=== PATIENT | male | born 1960 | race African-American/Black ===

== ENCOUNTER 2016-09-08 04:42 | Emergency (ER) | payer MEDICAID, OTHER ==
[2016-09-08] MEDS ORDERED: Ketorolac INJ* 60 MG/2 ML VIAL IM ONE (04:45)
--- NOTE | 2016-09-08 06:07 | ED ---
Vinicius Chairez Adam, scribed for Shawn Hickey MD on 09/08/16 at 0503 . Complex/Multi-Sys Presentation - HPI Summary HPI Summary: Pt is a 55 year old male presenting with palpitations and pain. He states that he fell in the bathroom 5 days ago and is currently in pain all over his body. He stated repeatedly that he feels like he is "burning up." Approximately 25 minutes ago he began to have palpitations as well, feeling like his heart was racing. PMHx includes CAD, HTN, HLD, gout, and sickle cell trait. - History Of Current Complaint Chief Complaint: EDGeneral Time Seen by Provider: 09/08/16 04:45 Hx Obtained From: Patient Onset/Duration: Gradual Onset, Lasting Days, Still Present Timing: Constant Severity Currently: Moderate Severity Initially: Moderate Location: Pain At: - Generalized Character: Unable To Describe - Feels like he is "burning up" Aggravating Factor(s): Nothing Alleviating Factor(s): Nothing Associated Signs And Symptoms: Positive: Other - Palpitations - Allergies/Home Medications Allergies/Adverse Reactions: Allergies Allergy/AdvReac Type Severity Reaction Status Date / Time Diltiazem Allergy INFECTION Verified 05/20/16 12:56 -ARMS AND LEGS PMH/Surg Hx/FS Hx/Imm Hx Endocrine/Hematology History: Reports: Hx Sickle Cell Disease - SICKLE CELL TRAIT Denies: Hx Anticoagulant Therapy, Hx Diabetes, Hx Thyroid Disease, Other Endocrine/Hematological Disorders Cardiovascular History: Reports: Hx Coronary Artery Disease - CHOLESTEROL HAS BEEN UP & DOWN, Hx Hypercholesterolemia, Hx Hypertension - ON MEDICATION FOR Denies: Hx Pacemaker/ICD, Other Cardiovascular Problems/Disorders Respiratory History: Denies: Hx Asthma, Hx Chronic Obstructive Pulmonary Disease (COPD), Other Respiratory Problems/Disorders GI History: Denies: Hx Ulcer, Other GI Disorders History: Reports: Other Problems/Disorders - KIDNEY FUNCTION LEVELS ARE HIGH PER PATIENT Denies: Hx Dialysis, Hx Renal Disease - BEING TESTED Musculoskeletal History: Reports: Hx Arthritis - LEFT KNEE, Other Musculoskeletal History - Gout Sensory History: Reports: Hx Contacts or Glasses - READING GLASSES Denies: Hx Hearing Aid, Other Sensory Impairments Opthamlomology History: Reports: Hx Contacts or Glasses - READING GLASSES Denies: Other Sensory Impairments Neurological History: Denies: Other Neuro Impairments/Disorders Psychiatric History: Reports: Hx Anxiety - HISTORY OF - ON MEDICATION FOR Denies: Hx Panic Disorder, Other Psychiatric Issues/Disorders - Surgical History Surgery Procedure, Year, and Place: RIGHT ARM STITCHING-38+STITCHES(1984)- [facility]. 2013-LEFT INGUINAL HERNIA REPAIR. RT KNEE AND LEFT KNEE SURGERY 12/03/13 AT [facility] [place] Hx Anesthesia Reactions: No - Immunization History Date of Tetanus Vaccine: UTD Date of Influenza Vaccine: NONE Infectious Disease History: No Infectious Disease History: Denies: Hx Hepatitis, Hx Human Immunodeficiency Virus (HIV), Traveled Outside the [place] in Last 30 Days - Family History Known Family History: Positive: Other - Negative malignant hyperthermia Negative: Blood Disorder - Social History Occupation: Employed Full-time Lives: Alone Alcohol Use: Occasionally Alcohol Amount: 1 DRINK EVERY FEW MONTHS Hx Substance Use: No Substance Use Type: Reports: None Hx Tobacco Use: No Smoking Status (MU): Never Smoked Tobacco Review of Systems Positive: Palpitations Positive: Myalgia - Feels like he is "burning up" All Other Systems Reviewed And Are Negative: Yes Physical Exam Triage Information Reviewed: Yes Vital Signs On Initial Exam: Initial Vitals Temp Pulse Resp BP Pulse Ox 100.4 F 84 18 128/66 93 09/08/16 04:45 09/08/16 04:45 09/08/16 04:45 09/08/16 04:45 09/08/16 04:45 Vital Signs Reviewed: Yes Appearance: Positive: Well-Appearing, No Pain Distress Skin: Positive: Warm Head/Face: Positive: Normal Head/Face Inspection Eyes: Positive: MARY ENT: Positive: Hearing grossly normal Neck: Positive: Supple Respiratory/Lung Sounds: Positive: Clear to Auscultation, Breath Sounds Present Cardiovascular: Positive: RRR. Negative: Murmur Abdomen Description: Positive: Nontender, No Organomegaly, Soft Bowel Sounds: Positive: Present Musculoskeletal: Positive: Other - no deformity to ankle/knee, from Neurological: Positive: Sensory/Motor Intact Diagnostics - Vital Signs Vital Signs Temp Pulse Resp BP Pulse Ox 09/08/16 04:45 100.4 F 84 18 128/66 93 - Laboratory Lab Statement: Any lab studies that have been ordered have been reviewed, and results considered in the medical decision making process. - Radiology Ankle XR Xray Interpretation: No Acute Changes Radiology Interpretation Completed By: ED Physician Knee KR Xray Interpretation: No Acute Changes Radiology Interpretation Completed By: ED Physician - EKG 04:47 Cardiac Rate: NL - 82 BPM EKG Rhythm: Sinus Rhythm - Normal EKG Interpretation: Within normal limits Re-Evaluation - Re-Evaluation First Eval Change: Improved - results d/w pt Complex Multi-Symp Course/Dx - Diagnoses Provider Diagnoses: Palpitations, Extremity pain Discharge - Discharge Plan Condition: Stable Disposition: HOME Patient Education Materials: Palpitations (ED), Leg Pain (ED) Referrals: Jf Christianson MD [Primary Care Provider] - Additional Instructions: Follow up with Dr. Christianson tomorrow (09/09/16). The documentation as recorded by the Vinicius issa Adam accurately reflects the service I personally performed and the decisions made by me, Shawn Hickey MD.
[2016-09-08 07:12] VITALS: BP 126/78
--- NOTE | 2016-09-09 11:03 | RAD ---
INDICATION: Right ankle injury. TECHNIQUE: 2 views of the right ankle were obtained. FINDINGS: There is diffuse soft tissue swelling. No fracture is seen. There is a large calcification adjacent to the medial aspect of the medial malleolus. There is moderate osteoarthritic change in the tibiotalar joint. Note is made of vascular calcifications. IMPRESSION: SOFT TISSUE SWELLING, NO FRACTURE IS SEEN.
--- NOTE | 2016-09-09 11:04 | RAD ---
HISTORY: Subacute trauma, generalized pain, sickle cell trait COMPARISONS: October 01, 2013 VIEWS: 2, Frontal and lateral views of the right knee FINDINGS: BONE DENSITY: Normal. BONES: There is no displaced fracture. JOINTS: There is mild tricompartmental osteoarthritis. There is a moderate suprapatellar joint effusion ALIGNMENT: There is no dislocation. SOFT TISSUES: Unremarkable. OTHER FINDINGS: None. IMPRESSION: JOINT EFFUSION. NO ACUTE OSSEOUS INJURY. IF SYMPTOMS PERSIST, RECOMMEND REPEAT IMAGING.
== END 2016-09-08 07:09 | disposition home or self-care (01) ==
LOC: ED 04:42
DX: R00.2 Palpitations (principal); M79.609 Pain in unspecified limb
CPT/HCPCS: 93005; 96372; 99282; J1885

== ENCOUNTER 2016-09-09 19:12 | Inpatient (IN) | payer OTHER ==
[2016-09-09] MEDS ORDERED: Acetaminophen TAB* 325 MG PO ONE (19:32)
[2016-09-09] MEDS ORDERED: Clindamycin 600 MG IVPREMIX(* 600 MG/50 ML SDV IV ONE (19:35)
[2016-09-09 19:58] LABS: Hematocrit 35 % (42-52); Hemoglobin 11.6 g/dl (14.0-18.0); Mean Corpuscular HGB Conc 33 g/dl (31-36); Mean Corpuscular Hemoglobin 28 pg (27-31); Mean Corpuscular Volume 85 fL (80-94); Mean Platelet Volume 8 um3 (7.4-10.4); Red Blood Count 4.15 10^6/ul (4.0-5.4); Red Cell Distribution Width 15 % (10.5-15); White Blood Count 10.9 10^3/ul (3.5-10.8)
[2016-09-09 20:12] LABS: Albumin 3.9 g/dL (3.2-5.2); BUN/Creatinine Ratio 19.9 (8-20); C Reactive Protein 318.06 mg/L (< 5.00); Calcium 9.5 mg/dL (8.6-10.3); EGFR African American 54.1 (>60); EGFR Non-African American 42.1 (>60); Globulin 4.4 g/dL (2-4); Potassium 3.3 mmol/L (3.5-5.0); Total Bilirubin 0.3 mg/dL (0.2-1.0); Total Protein 8.3 g/dL (6.4-8.9)
--- NOTE | 2016-09-09 20:24 | RAD ---
INDICATION: Fever COMPARISON: April 21, 2016 TECHNIQUE: PA and lateral dual-energy views were obtained. FINDINGS: Bones/Soft Tissues: There are no acute bony findings. Cardiomediastinal: The cardiomediastinal silhouette is normal. Lungs: There are no infiltrates. Pleura: There are no pleural effusions. Other: None IMPRESSION: NO ACTIVE DISEASE.
--- NOTE | 2016-09-09 20:25 | RAD ---
INDICATION: Left elbow injury one week ago COMPARISON: None TECHNIQUE: AP, lateral, and oblique views were obtained. FINDINGS: There is no acute fracture. Elbow articulates normally. There is soft tissue swelling about the dorsal aspect of the proximal forearm. IMPRESSION: SOFT TISSUE SWELLING. NO ACUTE FRACTURE
[2016-09-09 20:41] LABS: Urine Bilirubin Negative (Negative); Urine Glucose Negative (Negative); Urine Nitrite Negative (Negative)
[2016-09-09] MEDS ORDERED: Vancomycin per Pharmacy* NOTE FOLLOW UP PRN (20:59)
--- NOTE | 2016-09-09 21:04 | ED ---
Alpa Chairez Matthew, scribed for Mina Denis on 09/09/16 at 1938 . Skin Complaint - HPI Summary HPI Summary: A 55 y/o male presents to the ED by request from his PCP for a constant infection on his left elbow for the past 2-3 days. The pain is rated 8/10 in severity. Associated symptoms include swelling. Hes also states that he's had diaphoresis and palpitation intermittently for the past couple of days; however , he does not have these symptoms currently. He denies chest pain, SOB, and abdominal pain. Hx of gout. No Hx of diabetes, HTN, or CAD. FHx of diabetes. - History of Current Complaint Chief Complaint: EDGeneral Time Seen by Provider: 09/09/16 19:25 Stated Complaint: SENT BY DR CHRISTIANSON Hx Obtained From: Patient Onset/Duration: Started Days Ago, Atraumatic, Still Present Skin Exposure Onset/Duration: Days Ago Timing: Constant Onset Severity: Moderate Current Severity: Moderate Pain Intensity: 8 Pain Scale Used: 0-10 Numeric Skin Location: Other: - left elbow Character: Swelling, Pain Associated Signs & Symptoms: Fever - Allergy/Home Medications Allergies/Adverse Reactions: Allergies Allergy/AdvReac Type Severity Reaction Status Date / Time Diltiazem Allergy INFECTION Verified 05/20/16 12:56 -ARMS AND LEGS PMH/Surg Hx/FS Hx/Imm Hx Endocrine/Hematology History: Reports: Hx Sickle Cell Disease - SICKLE CELL TRAIT Denies: Hx Anticoagulant Therapy, Hx Diabetes, Hx Thyroid Disease, Other Endocrine/Hematological Disorders Cardiovascular History: Reports: Hx Coronary Artery Disease - CHOLESTEROL HAS BEEN UP & DOWN, Hx Hypercholesterolemia, Hx Hypertension - ON MEDICATION FOR Denies: Hx Pacemaker/ICD, Other Cardiovascular Problems/Disorders Respiratory History: Denies: Hx Asthma, Hx Chronic Obstructive Pulmonary Disease (COPD), Other Respiratory Problems/Disorders GI History: Denies: Hx Ulcer, Other GI Disorders History: Reports: Other Problems/Disorders - KIDNEY FUNCTION LEVELS ARE HIGH PER PATIENT Denies: Hx Dialysis, Hx Renal Disease - BEING TESTED Musculoskeletal History: Reports: Hx Arthritis - LEFT KNEE, Other Musculoskeletal History - Gout Sensory History: Reports: Hx Contacts or Glasses - READING GLASSES Denies: Hx Hearing Aid, Other Sensory Impairments Opthamlomology History: Reports: Hx Contacts or Glasses - READING GLASSES Denies: Other Sensory Impairments Neurological History: Denies: Other Neuro Impairments/Disorders Psychiatric History: Reports: Hx Anxiety - HISTORY OF - ON MEDICATION FOR Denies: Hx Panic Disorder, Other Psychiatric Issues/Disorders - Surgical History Surgery Procedure, Year, and Place: RIGHT ARM STITCHING-38+STITCHES(1984)- [facility]. 2013-LEFT INGUINAL HERNIA REPAIR. RT KNEE AND LEFT KNEE SURGERY 12/03/13 AT [facility] [place] Hx Anesthesia Reactions: No - Immunization History Date of Tetanus Vaccine: UTD Date of Influenza Vaccine: NONE Infectious Disease History: No Infectious Disease History: Denies: Hx Hepatitis, Hx Human Immunodeficiency Virus (HIV), Traveled Outside the [place] in Last 30 Days - Family History Known Family History: Positive: Diabetes, Other - Negative malignant hyperthermia Negative: Blood Disorder - Social History Alcohol Use: Occasionally Alcohol Amount: 1 DRINK EVERY FEW MONTHS Hx Substance Use: No Substance Use Type: Reports: None Hx Tobacco Use: No Smoking Status (MU): Never Smoked Tobacco Review of Systems Constitutional: Negative Eyes: Negative ENT: Negative Cardiovascular: Negative Negative: Palpitations, Chest Pain Respiratory: Negative Negative: Shortness Of Breath Gastrointestinal: Negative Negative: Abdominal Pain Genitourinary: Negative Positive: Myalgia - left elbow , Edema - left elbow Skin: Negative Neurological: Negative Psychological: Normal All Other Systems Reviewed And Are Negative: Yes Physical Exam Triage Information Reviewed: Yes Vital Signs On Initial Exam: Initial Vitals Temp Pulse Resp BP Pulse Ox 100.9 F 73 20 121/76 100 09/09/16 19:15 09/09/16 19:15 09/09/16 19:15 09/09/16 19:15 09/09/16 19:15 Vital Signs Reviewed: Yes Appearance: Positive: Well-Appearing, No Pain Distress Skin: Positive: Warm, Skin Color Reflects Adequate Perfusion, Dry Head/Face: Positive: Normal Head/Face Inspection Eyes: Positive: EOMI, MARY, Other: - mild pustule in the right eyelid ENT: Positive: Normal ENT inspection Neck: Positive: Supple, Nontender Respiratory/Lung Sounds: Positive: Clear to Auscultation, Breath Sounds Present Cardiovascular: Positive: RRR, Pulses are Symmetrical in both Upper and Lower Extremities Abdomen Description: Positive: Nontender, Soft Bowel Sounds: Positive: Present Musculoskeletal: Positive: Other - Swelling in the left forearm extending to the left arm; tenderness of the left elbow Neurological: Positive: Normal, Sensory/Motor Intact, Alert, Oriented to Person Place, Time Psychiatric: Positive: Normal Diagnostics - Vital Signs Vital Signs Temp Pulse Resp BP Pulse Ox 09/09/16 19:15 100.9 F 73 20 121/76 100 - Laboratory Result Diagrams: 09/09/16 19:45 09/09/16 19:45 Lab Statement: Any lab studies that have been ordered have been reviewed, and results considered in the medical decision making process. - Radiology LT elbow XR Xray Interpretation: No Acute Changes - IMPRESSION: SOFT TISSUE SWELLING. NO ACUTE FRACTURE Radiology Interpretation Completed By: Radiologist CXR Xray Interpretation: No Acute Changes - IMPRESSION: NO ACTIVE DISEASE. Radiology Interpretation Completed By: Radiologist Course/Dx - Course Assessment/Plan: A 55 y/o male presents to the ED by request from Dr. Christianson for an infection of the left elbow. Dr. Christianson sent the patient to the ED, so that he could be admitted. The left elbow and CXR returned negative. Discussed the case with Dr. Strickland who states Dr. Christianson will admit the patient into his care. - Diagnoses Provider Diagnoses: Cellulitis of left elbow - Physician Notifications Discussed Care Of Patient With: Dr. Strickland (Hospitalist) at 20:55 -- Notified of patient's history and states Dr. Christianson will admit the patient. Discharge - Discharge Plan Condition: Stable Disposition: ADMITTED TO [facility] Referrals: Jf Christianson MD [Primary Care Provider] - The documentation as recorded by the Alpa issa Matthew accurately reflects the service I personally performed and the decisions made by , iMna Denis.
[2016-09-09] MEDS ORDERED: Ibuprofen TAB* 800 MG PO PRN (21:05)
[2016-09-09] MEDS ORDERED: Diazepam TAB(*) 5 MG PO PRN (21:07)
[2016-09-09] MEDS ORDERED: oxyCODONE TAB* 5 MG TAB PO PRN (21:07)
[2016-09-09] MEDS ORDERED: Acetaminophen TAB* 325 MG PO PRN (21:08)
[2016-09-09] MEDS ORDERED: Vancomycin(*) 1,500 MG in NS 0.9% 250 ML* 250 ML IVPB ONE (21:30)
[2016-09-09 21:39] LABS: Troponin I 0.01 ng/mL (<0.04)
[2016-09-09 21:48] LABS: Erythrocyte Sed Rate 111 mm/Hr (0-20)
--- NOTE | 2016-09-09 22:45 | RAD ---
INDICATION: Pain and swelling. Left upper extremity pain and swelling. COMPARISON: None TECHNIQUE: Duplex interrogation of the upperextremity was performed. FINDINGS: Deep veins: The visualized jugular, visualized subclavian, axillary, brachial, basilic, cephalic, radial, and ulnar veins are patent . There is normal compressibility, augmentation, and phasic flow. Superficial veins: There are no findings of superficial thrombophlebitis. Soft tissues:There are no soft tissue abnormalities. IMPRESSION: NORMAL EXAMINATION. NO EVIDENCE OF UPPER EXTREMITY DEEP VENOUS THROMBOSIS
[2016-09-10] MEDS: Colchicine* 0.6 MG TAB PO SCH (00:31)
[2016-09-10] MEDS: Gentamicin 0.3% OPHTH.SOLN* 5 ML BTL RIGHT EYE SCH ×10 (00:31→23:38)
[2016-09-10] MEDS: sulfaSALAzine TAB* 500 MG PO SCH ×3 (00:33→18:02)
[2016-09-10] MEDS: cefTRIAXone VIAL(*) 1,000 MG in NS 0.9% 50 ML* 50 ML IVPB SCH ×2 (00:45→22:12)
[2016-09-10] MEDS: NS 0.9% w/ 20 Meq KCL 1000 ML* 1,000 ML IV SCH ×3 (00:45→19:32)
[2016-09-10 06:08] LABS: Hematocrit 33 % (42-52); Mean Corpuscular HGB Conc 33 g/dl (31-36); Mean Corpuscular Hemoglobin 28 pg (27-31); Mean Corpuscular Volume 85 fL (80-94); Mean Platelet Volume 8 um3 (7.4-10.4); Red Blood Count 3.92 10^6/ul (4.0-5.4); Red Cell Distribution Width 15 % (10.5-15); White Blood Count 7.3 10^3/ul (3.5-10.8)
[2016-09-10 06:25] LABS: Albumin 3.3 g/dL (3.2-5.2); BUN/Creatinine Ratio 20.8 (8-20); C Reactive Protein 253.33 mg/L (< 5.00); EGFR African American 63.4 (>60); EGFR Non-African American 49.3 (>60); Globulin 3.9 g/dL (2-4); Magnesium 2.2 mg/dL (1.9-2.7); Potassium 3.8 mmol/L (3.5-5.0); Total Bilirubin 0.4 mg/dL (0.2-1.0); Total Protein 7.2 g/dL (6.4-8.9)
[2016-09-10] MEDS: Allopurinol TAB* 100 MG PO SCH (08:41)
[2016-09-10] MEDS ORDERED: Lisinopril TAB* 10 MG PO SCH (09:00)
[2016-09-10] MEDS ORDERED: Hydrochlorothiazide TAB* 25 MG PO SCH (09:00)
[2016-09-10] MEDS ORDERED: Lisinopril/HCTZ 20/12.5(NF) TAB PO SCH (09:00)
[2016-09-10] MEDS ORDERED: NS 0.9% 250 ML* 250 ML ONE (10:46)
[2016-09-10] MEDS: Hydrochlorothiazide TAB* 25 MG PO SCH (10:50)
[2016-09-10] MEDS: Lisinopril TAB* 10 MG PO SCH (10:52)
[2016-09-10] MEDS: Vancomycin(*) 1,250 MG in NS 0.9% 250 ML* 250 ML IVPB SCH ×2 (10:52→23:38)
--- NOTE | 2016-09-10 11:12 | CONSULT ---
Consult Consult: See dictated summary. 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 He is admitted with a significant flare of pain and restriction in the knee and elbow region. Prior aspiration of the right knee on 09/05 revealed 4 plus nucleated cells and 4 plus neutrophils but no crystals and no organisms. His CRP has been markedly elevated. Would continue IV antibiotic coverage. Consider ID consultation to rule out any infectious etiology. I will re check autoimmune serologies. He has tried Doxycycline and Sulfasalazine in the past. 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
[2016-09-10 15:06] LABS: Ferritin 370.4 ng/mL (24-336)
--- NOTE | 2016-09-10 16:54 | HP ---
CC: Dr. Longoria; Dr. De Leon ADMISSION HISTORY AND PHYSICAL: DATE OF ADMISSION: 09/09/16 CHIEF COMPLAINT: Palpitations, fever. HISTORY OF PRESENT ILLNESS: Mr. Guardado is a 55-year-old man with possible reactive arthritis who presented to the office on the day of admission, reporting pain and rash on the left elbow for 2 to 3 days. The patient states that the skin around the left elbow is red and burning and swollen. He had no trauma to the area. The patient reports fevers at home. This phase of his illness began approximately 6 days prior to admission. The patient reports that he, at that time, had swelling of the right knee and right ankle. The patient got up to go to the bathroom 6 days ago at home and had sudden syncope without warning. He woke up on the floor after, what he thinks is, a few hours. He was able to get to bed and he stayed home from work and spent almost all the time in bed for the last 4 days. He had worsening pain in his right knee and right ankle, and did call the ambulance on the night of 09/07/16. He was brought to the emergency department at that point, via the ambulance, he reports on advice of Dr. De Leon. He was seen and had x-rays of his right knee and right ankle, which showed effusions. No further blood tests were taken and he was discharged to home. The patient did also see Dr. De Leon on 09/05/16 in the office. At that time, his right knee was aspirated and blood tinged fatty fluid was removed and sent to the lab. This did not show any crystal, but did show 94% neutrophils. Culture in this fluid showed no growth to-date. The patient had same joint aspirated on 05/31 in the office, which showed a white cell count of 22,000, with similar results of no crystals, no bacteria. The patient also had a synovial biopsy on 05/20, Dr. De Leon, with dactylitis and inflamed MCP joint on the left hand, by Dr. De Leon. The pathology showed chronic synovitis and reactive changes without any clear signs of gout. During this illness this week, the patient has been on the phone with our office several times. He was ordered to start prednisone taper, but he has not picked up his medication. He was ordered yesterday to start doxycycline for possible cellulitis in his left elbow and this was also not started by the patient, he did not go to the pharmacy. It should be noted that the patient is a moderately poor historian and he also is unable to name his medications. He generally refers to his medications as the red pill, the green pill, etc. The patient, this week, believed that his left elbow swelling was due to medications he was on, so he stopped all his medications, except for lisinopril. PAST MEDICAL HISTORY: Includes reactive arthritis as above. He had suspected gout due to hyperuricemia and joint inflammation, but never had any crystals demonstrated. 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 PAST SURGICAL HISTORY: Hernia repair, right inguinal; left knee arthroscopy, right biceps tendon repair after laceration, synovial biopsy of left third finger as described above. MEDICATIONS: On admission: 1. Allopurinol 100 mg p.o. daily. 2. Multivitamin 1 tab p.o. daily. 3. Colchicine 0.6 mg every other day. 4. Diazepam 5 mg p.o. t.i.d. p.r.n. muscle spasm. 5. Ibuprofen 800 mg p.o. t.i.d. p.r.n. 6. Lisinopril/hydrochlorothiazide 25/12.5 one tab p.o. q.a.m. 7. Doxycycline 100 mg p.o. b.i.d. (never started). 8. Prednisone 60 mg p.o. daily for 4 days and then taper (never started). 9. Sulfasalazine 500 mg 2 tabs in the morning, 1 tab in the evening. ALLERGIES: DILTIAZEM. FAMILY HISTORY: Notable for father with diabetes and hypertension. Mother with hypertension and of heart disease at age 72. He has a son with asthma. A brother who has a history of hypertension. SOCIAL HISTORY: He lives alone. 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 He never smoked. He drinks alcohol 0 to 1 per day, no recreational drugs. REVIEW OF SYSTEMS: The patient reports night sweats soaking the sheets this week. He denies any weight loss. The patient reports palpitations. He also reports a history of NV in 2007 which led to initiation of blood pressure medication, details of this unavailable. He denies any recent cardiac workup. He also reports history of benign bladder neoplasm, seen by Dr. Sloan in the past. The patient denies any shortness of breath or cough. The patient denies any abdominal pain, nausea, vomiting, diarrhea or constipation. Remainder of a 14-point review of systems is negative other than mentioned in the HPI. PHYSICAL EXAMINATION GENERAL: The patient is fatigued appearing, in no acute distress. VITAL SIGNS: Temperature is 38.3, pulse 73, respirations 20, blood pressure is 121/76, oxygen saturation is 100%. HEENT: Head is normocephalic, atraumatic. Sclerae are anicteric. Conjunctiva are injected and erythematous on the right eyelid. Oropharynx is moist. No lesions. NECK: No adenopathy, no JVD or carotid bruits. Thyroid is not enlarged. No nodules. LUNGS: Clear to auscultation and percussion bilaterally. HEART: Regular rate and rhythm, without murmurs or gallops. ABDOMEN: Soft, nontender. Positive bowel sounds. No hepatosplenomegaly. No masses. EXTREMITIES: No peripheral edema. Dorsalis pedis pulses are 1+ bilaterally. NEUROLOGIC: Cranial nerves II through XII are intact. Motor strength is 5/5 throughout. MUSCULOSKELETAL: He has full range of motion of the right arm. On the left elbow, there is diffuse erythematous, indurated, tender area, about 10-15 cm. On the left elbow there is no skin breakdown. Range of motion of the right elbow is limited, and there is an effusion in the left olecranon bursa. The right knee has 1+ effusion, but full range of motion. No tender areas, no erythema. Right ankle has trace effusion, but full range of motion. SKIN EXAM: No rashes other than mentioned above. PSYCHIATRIC: The patient is alert and oriented x3 LABORATORY DATA: Sodium 131, potassium 3.3, chloride 93, bicarb 32, BUN 34, creatinine 1.71, glucose 121, lactic acid 1.4, calcium 9.4. AST 54, ALT 41, bilirubin 0.3, total protein 8.3, C-reactive protein 318, CPK 2408. INR 1.23, PTT 34.2. White count 10.9, hemoglobin 11.6, hematocrit 34%, platelets are 251. Sedimentation rate is 111. Urinalysis is negative. Blood cultures are pending. Venous Doppler of left upper extremity is pending. ASSESSMENT AND PLAN: A 55-year-old male with difficult to treat migratory oligo -arthritis, now presenting with fever, chills, left elbow inflammation, and recent syncope. 1. Given his fever, elevated sed rate, night sweats, erythema of the left elbow , differential would include bacterial and other infections. He certainly has clinical signs of cellulitis and he has failed to be treated as an outpatient, so he requires admission to the hospital. He will be given ceftriaxone and vancomycin to cover Staph and Strep and MRSA that could be causing his left elbow cellulitis or septic arthritis. He will have the limb elevated as well. Sedimentation rate is also concerning for deeper tissue infection such as endocarditis or osteomyelitis. The patient will have echocardiogram and possible DENI if indicated as well as a bone scan to look for occult osteomyelitis. 2. The patient's rheumatologic situation remains unclear. The patient has had suspected gout and he remains on uric acid lowering medications, but that does not explain the whole picture. He has also had suspectedreactive arthritis, but has been seronegative. He did have an elevated ASO titer last year. The patient will be seen by Dr. De Leon for consultation while he is here in the hospital and further workup can be obtained. We will also ask Dr. Longoria of Infectious Disease to see the patient due to the above infectious differential. 3. Because of his elevated white count, fever, night sweats, unexplained illness, in general, differential would include lymphoma or leukemia. We will discuss the case with Hematology and ask them to see him potentially as well. The patient does have a history of sickle cell trait, but this does not appear to be related to sickle cell disease. 4. The patient has hypertension and chronic kidney disease. His creatinine is elevated above baseline on admission and hyponatremia. It would appear that he has volume depletion. So we will hold his antihypertensives and hydrate him aggressively with normal saline and potassium supplement. The electrolytes will be rechecked in the morning. 5. The patient has a history of myositis. Differential would include mitochondrial myopathy. He had a muscle biopsy done with Rheumatology and we are looking for the results of this. 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 Mitochondrial disease is also in the differential. The patient also has a history of a peripheral axonal neuropathy on nerve conduction studies. We could ask Neurology to assess the patient while he is here in the hospital. 6. The patient has complaints of right eye inflammation and he will be started on gentamicin drops for possible conjunctivitis or a small stye. 7. The patient is at low risk of DVT in general. However, because of his left elbow swelling (and diffuse swelling in the forearm) and he will have a Doppler study this evening. 8. Code status is full. I discussed the case with Dr. De Leon and Dr. Marinelli. Hospitalist will take over his care while he is here and Dr. De Leon will certainly consult and arrange other consultations with specialists. [id number]/[facility] #: [id number] ZIGGY
--- NOTE | 2016-09-10 18:07 | PN ---
Subjective Date of Service: 09/10/16 Interval History: Patient's main complaint is significant worsening of Diffuse joint pain over last week. Also swelling redness pain and warmth over left elbow. Objective Active Medications: Acetaminophen (Tylenol Tab*) 650 mg PO Q4H PRN PRN Reason: FEVER/HEADACHE Allopurinol (Zyloprim Tab*) 100 mg PO DAILY [facility] Last Admin: 09/10/16 08:41 Dose: 100 mg Colchicine (Colcrys*) 0.6 mg PO Q48H [facility] Last Admin: 09/10/16 00:31 Dose: 0.6 mg Diazepam (Valium Tab(*)) 5 mg PO Q8H PRN PRN Reason: SPASMS - MUSCLE Gentamicin Sulfate (Gentamicin 0.3% Ophth.Soln*) 2 drop RIGHT EYE Q3H [facility] Last Admin: 09/10/16 15:22 Dose: 2 drop Hydrochlorothiazide (Hydrodiuril Tab*) 12.5 mg PO DAILY [facility] Last Admin: 09/10/16 10:50 Dose: 12.5 mg Potassium Chloride/Sodium Chloride (Ns 0.9% W/ 20 Meq Kcl 1000 Ml*) 1,000 mls @ 150 mls/hr IV PER RATE [facility] Last Admin: 09/10/16 08:39 Dose: 150 mls/hr Ceftriaxone Sodium 1,000 mg/ (Sodium Chloride) 50 mls @ 200 mls/hr IVPB Q24H [facility] Last Admin: 09/10/16 00:45 Dose: 200 mls/hr Vancomycin HCl 1,250 mg/ (Sodium Chloride) 250 mls @ 166.667 mls/hr IVPB Q12H [facility] Last Admin: 09/10/16 10:52 Dose: 166.667 mls/hr Ibuprofen (Motrin Tab*) 800 mg PO Q8H PRN PRN Reason: PAIN Lisinopril (Prinivil Tab*) 20 mg PO DAILY [facility] Last Admin: 09/10/16 10:52 Dose: 20 mg Oxycodone HCl (Roxycodone Tab*) 10 mg PO Q4H PRN PRN Reason: PAIN - MODERATE TO SEVERE Pharmacy Consult (Vancomycin Per Pharmacy*) 1 note FOLLOW UP . PRN PRN Reason: PER PROTOCOL Pharmacy Profile Note (Vancomycin Trough Check) 1 note FOLLOW UP 1030 ONE Stop: 09/11/16 10:31 Sulfasalazine (Azulfidine Tab*) 1,000 mg PO QAM [facility] Last Admin: 09/10/16 08:41 Dose: 1,000 mg Sulfasalazine (Azulfidine Tab*) 500 mg PO QPM [facility] Last Admin: 09/10/16 00:33 Dose: 500 mg Vital Signs 09/10/16 09/10/16 09/10/16 01:43 01:55 04:13 Temperature 98.1 F 98.7 F Pulse Rate 64 63 Respiratory 18 16 20 Rate Blood Pressure 104/66 105/69 (mmHg) O2 Sat by Pulse 97 99 Oximetry 09/10/16 09/10/16 09/10/16 08:00 08:10 11:39 Temperature 99.0 F 99.0 F Pulse Rate 61 70 Respiratory 18 16 16 Rate Blood Pressure 145/118 127/69 (mmHg) O2 Sat by Pulse 96 88 Oximetry 09/10/16 16:06 Temperature 99.0 F Pulse Rate 65 Respiratory Rate Blood Pressure 109/54 (mmHg) O2 Sat by Pulse 98 Oximetry Oxygen Devices in Use Now: None Appearance: WD/WN gentlemen sitting up in his bed in NAD Eyes: No Scleral Icterus Ears/Nose/Mouth/Throat: NL Teeth, Lips, Gums Neck: No Thyroid Enlargement, Masses Respiratory: Clear to Auscultation Cardiovascular: - - S1S2 patty Abdominal: NL Sounds; No Tenderness; No Distention, No Hepatosplenomegaly Lymphatic: No Cervical Adenopathy Extremities: - - Left elbow swollen red and tender Skin: No Rash or Ulcers Neurological: Alert and Oriented x 3 Result Diagrams: 09/10/16 05:32 09/10/16 05:29 Assess/Plan/Problems-Billing Assessment: Patient is a 55 year old with known history of reactive arthritis who presented to [facility] with fever and redness and swelling of left elbow and elevated esr. - Patient Problems (1) Fever Current Visit: Yes Status: Acute Code(s): R50.9 - FEVER, UNSPECIFIED SNOMED Code(s): 410105396 Comment: Patient with known history of arthritis and elevated esr but never to this degree. Concern for infectious process or even osteo. Agree with IV antibiotics and will get ID consult on Monday. Bone scan and TTE also ordered. Appreciate Rheumatology's input. (2) Arthritis Current Visit: Yes Status: Acute Code(s): M19.90 - UNSPECIFIED OSTEOARTHRITIS, UNSPECIFIED SITE SNOMED Code(s): 1830241 Comment: See above. Continue current treatment but seems to be more than just acute flare. Await imaging results (3) DVT prophylaxis Current Visit: Yes Status: Acute Code(s): RIK1885 - SNOMED Code(s): 636315000 Comment: Heparin subq (4) Full code status Current Visit: Yes Status: Acute Code(s): Z78.9 - OTHER SPECIFIED HEALTH STATUS SNOMED Code(s): 392199194
[2016-09-10 18:47] LABS: Erythrocyte Sed Rate 104 mm/Hr (0-20)
[2016-09-10 20:10] LABS: Hematocrit 32 % (42-52); Hemoglobin 10.5 g/dl (14.0-18.0); Mean Corpuscular HGB Conc 33 g/dl (31-36); Mean Corpuscular Hemoglobin 28 pg (27-31); Mean Corpuscular Volume 85 fL (80-94); Mean Platelet Volume 8 um3 (7.4-10.4); Red Blood Count 3.73 10^6/ul (4.0-5.4); Red Cell Distribution Width 14 % (10.5-15); White Blood Count 7.5 10^3/ul (3.5-10.8)
[2016-09-10 20:28] LABS: EGFR Non-African American 56.7 (>60)
--- NOTE | 2016-09-10 20:43 | CONS ---
CONSULTATION REPORT: DATE OF CONSULT: 09/10/16 CONSULTING PHYSICIAN: Dr. Christianson. REASON FOR CONSULT: Polyarthritis. CHIEF COMPLAINT: Joint pain. HISTORY OF PRESENT ILLNESS: Mr. Guardado is a 55-year-old man well known to me who has a history of p resumed gout with history of renal insufficiency and elevated uric acid. Over the last year, he has had recurrent episodes of polyarticular joint pain affecting his large joints including his knees, but also his lower extremity. 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 He is tentatively scheduled to see a neurologist to address this issue. More recently, he has also had swelling and dactylitis of his second finger. This was biopsied by Dr. De Leon which showed chron ic reactive changes and synovitis but no evidence of infection. He has required several drainages o f his knee. When it has been drained, the fluid was inflammatory but no crystals were found. He vasquez s continued on allopurinol. He has also tried doxycycline in the past for possible reactive arthrit is based on synovial biopsy results. More recently, he was placed on sulfasalazine. There have bee n some questions about adherence to medication, but it appears that overall he has been adherent to his medical therapy. He presented earlier this week with complaints of weakness in his knees as wel l as diffuse pain with joint pain in his ankles but also in particular his knee region. He was seen by me on the 6th of this month. It was noted that his right knee was swollen, it was aspirated, an d no infection was found. However, his C-reactive protein was found to be markedly elevated with a normal lactic acid, but a white count of 10.9. Given the significant rise of the C-reactive protein which was much higher than before, it was felt that he might have an infectious process. He did, ho wever, go to the emergency room around 4:30 a.m. on and according to the patient had a bad experience there. So, he was reluctant to go back to the hospital, although we felt that this would be the best place for him in terms of ruling out an infection. He was seen by Dr. Christianson last night and was directly admitted to the hospital. In terms of prior studies that he has had, he has had an MRI of the right knee in the past. This was done by Dr. Darling in July of this year which showed horizontal tear in the posterior horn and body of the medial meniscus but no definite free fragment was noted with degenerative changes of the patellofemoral joint noted with a subchondral cyst in th e medial femoral trochlea with a moderate size joint effusion and popliteal cyst which has increased in size. He did have an x-ray of his finger in March of last year which showed no acute findin gs. He had a cell count done of the synovial fluid that was aspirated. No crystals were seen. He has a QuantiFERON test Gold that is pending. The culture was negative but he did have 4+ neutrophil s and 3+ nucleated cells but no organisms seen and the neutrophils in the synovial fluid were 94. Michael raymond has also more recently had swelling along his left elbow region. These are improved today since michael raymond has been admitted and started on IV cephalosporin. He still has mild discomfort in the right knee but does not feel particularly febrile. He still has dysesthesias in his elbow that is slightly imp roved as well too. He has felt fevers earlier in the week with some night sweats and chills, but kendell edmonds feels fairly well and is eating breakfast. PAST MEDICAL HISTORY: Includes hypertension with GA in 2007; benign urological neoplasm, seen by Damaso saarbia; he has had prior laceration of the right arm, requiring 38 sutures, went through a glass door ; chronic renal insufficiency; localized primary osteoarthritis; hyperlipidemia; essential hypertens ion; primary erectile dysfunction; he also has possible peripheral axonal neuropathy. PAST SURGICAL HISTORY: He has had a hernia repair on the right inguinal region, arthroscopic diagno stic evaluation of the left knee with right arm tendon repair as well as synovial biopsy of his inde x finger. MEDICATIONS: As an outpatient included: 1. Lisinopril and hydrochlorothiazide. 2. Allopurinol 200 mg daily. 3. Colchicine as needed. 4. Gabapentin 300 mg 3 times daily. 5. Sulfasalazine 3 a day. 6. He is also on prednisone on a taper which he recently held in case the medications were causing side effects. 7. Centrovite. 8. Ibuprofen sparingly. 9. Diazepam as needed for spasms. 10. He has been on pain medicine. ALLERGIES: Include DILTIAZEM causing joint inflammation. FAMILY HISTORY: Notable for heart disease, diabetes, osteoarthritis, diabetes, and hypertension in his father and mother has hypertension. He himself has a history of a sick cell trait. SOCIAL HISTORY: He is single, lives alone. 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 He has never smoked, drinks abou t 5 alcoholic beverages per week but has cut down on this. Denies drug use and tries to exercise. Michael raymond also has osteoarthritis of the knees and has played basket ball in the past but he has been unable to do this because of osteoarthritis of his knees. He did receive viscous supplementation earlier in the year. REVIEW OF SYSTEMS: He denied dehydration. Eyes: Denied dryness or irritation but he did feel wher e he had a stye in his eye earlier this week. ENT: He denies dry mouth or jaw pain or difficulty s wallowing. Cardiovascular: Denied chest wall pain or shortness of breath. Respiratory: Denied co ugh, congestion. GI: Denies abdominal pain, anorexia, nausea, or diarrhea. Musculoskeletal: As n oted above. Skin: He has no acute rash now. No Raynaud's. He has had no nail changes or psoriasis . Neurologic: As noted above with myopathy but he is able to overall ambulate at this point. Psyc hiatry: Denies anxiety. Other 14-point review of systems were reviewed and were otherwise negative . PHYSICAL EXAM: His temperature is 99, pulse of 61, respiratory rate of 16, blood pressure 145/118. In general, he is pleasant, in no acute distress, sitting up and eating breakfast. Eyes: Extraocu lar movements were intact. Conjunctivae are clear. No injection of the sclerae. ENT: Oropharynx showed no ulcers. Oral mucosa is moist. Respiratory percussion, normal sounds. Lungs were clear b ilaterally. Cardiovascular exam revealed a regular rate and rhythm. Normal S1 and S2. No murmurs, rubs, or gallops. Lymph: No adenopathy. Musculoskeletal: He had 1+ synovitis of the right knee w ith improved range of motion of the knee compared to earlier in the week. The left elbow had good r inez of motion of it, but there seemed to some synovitis, warmth, and minimal redness around the ole cranon region, possible nodular formation and no other tophi were appreciated. He had full range of motion of his other joints but he did have mild swelling around his ankles and MTP joints, but there were not tender. Psychiatric: Mood was normal. : No CVA tenderness. Affect is normal. DIAGNOSTIC STUDIES: He had an elbow x-ray showing soft tissue swelling but no acute fracture and ve nous Doppler study that was normal. Chest x-ray on the which was showing no acute disease. ASSESSMENT: He is a 55-year-old male with a history polyarticular joint pain with a recent flare, f elt to be possibly reactive arthritis and this was confirmed on the synovial biopsy of his finger. He is currently on sulfasalazine and his recent course has been complicated by markedly elevated inf lammatory markers. He is currently on IV antibiotics. I agree with getting Infectious Disease invo lved as per my communication with Dr. Christianson. However, if an infectious etiology is ruled out, there is some evidence that immunosuppressive or immunomodulating therapy may help chronic reactive arthri tis and we potentially could consider adding Enbrel. I would recheck the Lyme, rheumatoid factor, a nd CCP antibody which have been checked in the past and were negative. Also, he, I believe, has Bob ntiFERON test that is pending. Continue supportive care. We will continue to follow daily. [id number]/[facility] #: [id number]
[2016-09-10] MEDS: Heparin VIAL(*) 5000 UNITS/ML VIAL (FIVE THOUSAND) SUBCUT SCH (22:13)
[2016-09-11] MEDS: NS 0.9% w/ 20 Meq KCL 1000 ML* 1,000 ML IV SCH (05:18)
[2016-09-11] MEDS: Gentamicin 0.3% OPHTH.SOLN* 5 ML BTL RIGHT EYE SCH ×8 (05:21→23:18)
[2016-09-11] MEDS: Heparin VIAL(*) 5000 UNITS/ML VIAL (FIVE THOUSAND) SUBCUT SCH ×3 (05:52→21:02)
[2016-09-11] MEDS: Lisinopril TAB* 10 MG PO SCH (08:22)
[2016-09-11] MEDS: Allopurinol TAB* 100 MG PO SCH (08:22)
[2016-09-11] MEDS: sulfaSALAzine TAB* 500 MG PO SCH ×2 (08:23→17:57)
[2016-09-11] MEDS: Hydrochlorothiazide TAB* 25 MG PO SCH (08:23)
[2016-09-11] MEDS ORDERED: Vancomycin Trough Check NOTE FOLLOW UP ONE (10:30)
[2016-09-11 11:57] LABS: Vancomycin Trough 9.5 mcg/mL
[2016-09-11] MEDS: Vancomycin(*) 1,250 MG in NS 0.9% 250 ML* 250 ML IVPB SCH ×2 (12:08→21:01)
[2016-09-11 14:58] LABS: Folate 13.84 ng/mL (>3.99)
--- NOTE | 2016-09-11 16:04 | CONSULT ---
Consult Consult: Rheumatology consult follow up Note Patient: SHANNAN MURRY /Age: 04 1960 55 Medical Record#: [id number] Admission Date: 09/09/16 Provider: Isidro De Leon MD Chief complaint Reactive arthritis Subjective Date of Service: 09/11/16 Interval History: Patient has noted some improvement in elbow range of motion and knee pain. Denies high fevers; he has had no significant ocular pain. Objective Active Medications: Acetaminophen (Tylenol Tab*) 650 mg PO Q4H PRN PRN Reason: FEVER/HEADACHE Allopurinol (Zyloprim Tab*) 100 mg PO DAILY [facility] Last Admin: 09/10/16 08:41 Dose: 100 mg Colchicine (Colcrys*) 0.6 mg PO Q48H [facility] Last Admin: 09/10/16 00:31 Dose: 0.6 mg Diazepam (Valium Tab(*)) 5 mg PO Q8H PRN PRN Reason: SPASMS - MUSCLE Gentamicin Sulfate (Gentamicin 0.3% Ophth.Soln*) 2 drop RIGHT EYE Q3H [facility] Last Admin: 09/10/16 15:22 Dose: 2 drop Hydrochlorothiazide (Hydrodiuril Tab*) 12.5 mg PO DAILY [facility] Last Admin: 09/10/16 10:50 Dose: 12.5 mg Potassium Chloride/Sodium Chloride (Ns 0.9% W/ 20 Meq Kcl 1000 Ml*) 1,000 mls @ 150 mls/hr IV PER RATE [facility] Last Admin: 09/10/16 08:39 Dose: 150 mls/hr Ceftriaxone Sodium 1,000 mg/ (Sodium Chloride) 50 mls @ 200 mls/hr IVPB Q24H [facility] Last Admin: 09/10/16 00:45 Dose: 200 mls/hr Vancomycin HCl 1,250 mg/ (Sodium Chloride) 250 mls @ 166.667 mls/hr IVPB Q12H [facility] Last Admin: 09/10/16 10:52 Dose: 166.667 mls/hr Ibuprofen (Motrin Tab*) 800 mg PO Q8H PRN PRN Reason: PAIN Lisinopril (Prinivil Tab*) 20 mg PO DAILY [facility] Last Admin: 09/10/16 10:52 Dose: 20 mg Oxycodone HCl (Roxycodone Tab*) 10 mg PO Q4H PRN PRN Reason: PAIN - MODERATE TO SEVERE Pharmacy Consult (Vancomycin Per Pharmacy*) 1 note FOLLOW UP . PRN PRN Reason: PER PROTOCOL Pharmacy Profile Note (Vancomycin Trough Check) 1 note FOLLOW UP 1030 ONE Sulfasalazine (Azulfidine Tab*) 1,000 mg PO QAM [facility] Last Admin: 09/10/16 08:41 Dose: 1,000 mg Sulfasalazine (Azulfidine Tab*) 500 mg PO QPM [facility] Last Admin: 09/10/16 00:33 Dose: 500 mg Vital Signs 09/10/16 09/10/16 01:43 01:55 04:13 Temperature 98.1 F 98.7 F Pulse Rate 64 63 Respiratory 18 16 20 Rate Blood Pressure 104/66 105/69 (mmHg) O2 Sat by Pulse 97 99 Oximetry 09/10/16 09/10/16 08:00 08:10 11:39 Temperature 99.0 F 99.0 F Pulse Rate 61 70 Respiratory 18 16 16 Rate Blood Pressure 145/118 127/69 (mmHg) O2 Sat by Pulse 96 88 Oximetry 09/10/16 16:06 Temperature 99.0 F Pulse Rate 65 Respiratory Rate Blood Pressure 109/54 ( mmHg) O2 Sat by Pulse 98 Oximetry Oxygen Devices in Use Now: None Appearance: WD/WN gentlemen sitting up in his bed in NAD Eyes: No Scleral Icterus; minimal erythema right conjunctiva Ears/Nose/Mouth/Throat: NL Teeth, Lips, Gums Neck: No Thyroid Enlargement, Masses Respiratory: Clear to Auscultation Cardiovascular: - - S1S2 patty Abdominal: NL Sounds; No Tenderness; No Distention, No Hepatosplenomegaly Lymphatic: No Cervical Adenopathy Extremities: No edema. M/S: Left elbow with decreased swelling, no erythema or redness. Right knee with 1 plus effusion but he has full range of motion of his joint and it is not tender. No synovitis noted in other locations. Progress Note SHANNAN MURRY [id number] 09/09/16 Skin: No Rash or Ulcers Neurological: Alert and Oriented x 3 Result Diagrams: 09/10/16 05:32 B12 is normal. Assess/Plan/Problems-Billing Assessment: Patient is a 55 year old with known history of reactive arthritis who [place] [facility] fever and redness and swelling of left elbow and elevated inflammatory markers. - Patient Problems (1) Fever Current Visit: R50.9 - FEVER, UNSPECIFIED [id number] Comment: At this point would probably not aspirate his elbow as it seems to be improving and there was some initial question of cellulitis. His knee is slightly improved today but still has an effusion. An aspiration of the knee as an outpatient was negative for bacteria. I think that he most likely has reactive arthritis, based on palindromic oligoarticular attacks of joint pain, reactive synovitis confirmed on a prior finger biopsy, and possible conjunctivitis which is resolving. It is not clear what initially triggered his inflammatory arthritis. If an infectious etiology is ruled out, I think that we should consider immunomodulating therapy; specifically Enbrel may help reactive arthritis. As an out patient, he has already tried Doxycycline and Sulfasalazine. Would consider if ID thinks he needs a longer course of Doxy first. (2) Arthritis Current Visit: Yes Status: Acute Code(s): M19.90 - UNSPECIFIED OSTEOARTHRITIS, Arthritis Rheum. 2004Feb 14;53(4):613-7. Decreased pain and synovial inflammation after etanercept therapy in patients with reactive and undifferentiated arthritis: an open-label trial. Cinthia SD1, Haley R, Wanda E, Rachel T, Bobo WADE Jr. (3) Possible gout, elevated uric acid Current Visit: Yes Status: Acute Code(s): UAV8937 - SNOMED Code(s): 801363965 Comment: Would continue low dose allopurinol. He has mild renal insufficiency which is stable (4) Elevated CRP, ESR: workup pending 5) DVT prophylaxis: continue supportive care per IM.
--- NOTE | 2016-09-11 18:54 | PN ---
Subjective Date of Service: 09/11/16 Interval History: Patient feeling better in terms of pain and fever but concerned that he couldn' t take a shower as he was supposed to last night. Objective Active Medications: Acetaminophen (Tylenol Tab*) 650 mg PO Q4H PRN PRN Reason: FEVER/HEADACHE Allopurinol (Zyloprim Tab*) 100 mg PO DAILY [facility] Last Admin: 09/11/16 08:22 Dose: 100 mg Colchicine (Colcrys*) 0.6 mg PO Q48H [facility] Last Admin: 09/10/16 00:31 Dose: 0.6 mg Diazepam (Valium Tab(*)) 5 mg PO Q8H PRN PRN Reason: SPASMS - MUSCLE Gentamicin Sulfate (Gentamicin 0.3% Ophth.Soln*) 2 drop RIGHT EYE Q3H [facility] Last Admin: 09/11/16 17:57 Dose: 2 drop Heparin Sodium (Porcine) (Heparin Vial(*)) 5,000 units SUBCUT Q8HR [facility] Last Admin: 09/11/16 14:24 Dose: 5,000 units Hydrochlorothiazide (Hydrodiuril Tab*) 12.5 mg PO DAILY [facility] Last Admin: 09/11/16 08:23 Dose: 12.5 mg Potassium Chloride/Sodium Chloride (Ns 0.9% W/ 20 Meq Kcl 1000 Ml*) 1,000 mls @ 150 mls/hr IV PER RATE [facility] Last Admin: 09/11/16 05:18 Dose: 150 mls/hr Ceftriaxone Sodium 1,000 mg/ (Sodium Chloride) 50 mls @ 200 mls/hr IVPB Q24H [facility] Last Admin: 09/10/16 22:12 Dose: 200 mls/hr Vancomycin HCl 1,250 mg/ (Sodium Chloride) 250 mls @ 166.667 mls/hr IVPB Q8H [facility] Ibuprofen (Motrin Tab*) 800 mg PO Q8H PRN PRN Reason: PAIN Lisinopril (Prinivil Tab*) 20 mg PO DAILY [facility] Last Admin: 09/11/16 08:22 Dose: 20 mg Oxycodone HCl (Roxycodone Tab*) 10 mg PO Q4H PRN PRN Reason: PAIN - MODERATE TO SEVERE Pharmacy Consult (Vancomycin Per Pharmacy*) 1 note FOLLOW UP . PRN PRN Reason: PER PROTOCOL Pharmacy Profile Note (Vancomycin Trough Check) 1 note FOLLOW UP ONCE ONE Stop: 09/12/16 11:31 Sulfasalazine (Azulfidine Tab*) 1,000 mg PO QAM [facility] Last Admin: 09/11/16 08:23 Dose: 1,000 mg Sulfasalazine (Azulfidine Tab*) 500 mg PO QPM [facility] Last Admin: 09/11/16 17:57 Dose: 500 mg Vital Signs 09/10/16 09/10/16 09/10/16 19:23 20:00 23:50 Temperature 99.7 F 98.4 F Pulse Rate 78 70 Respiratory 24 16 20 Rate Blood Pressure 126/71 127/79 (mmHg) O2 Sat by Pulse 97 99 Oximetry 09/11/16 09/11/16 09/11/16 03:47 07:51 08:00 Temperature 98.6 F 98.4 F Pulse Rate 62 63 Respiratory 16 16 20 Rate Blood Pressure 109/65 119/70 (mmHg) O2 Sat by Pulse 97 100 Oximetry 09/11/16 15:44 Temperature 98.0 F Pulse Rate 61 Respiratory 16 Rate Blood Pressure 123/71 (mmHg) O2 Sat by Pulse 99 Oximetry Oxygen Devices in Use Now: None Appearance: WD/WN gentleman sitting up in bed in NAD Eyes: No Scleral Icterus Ears/Nose/Mouth/Throat: Mucous Membranes Moist Neck: NL Appearance and Movements; NL JVP, No Thyroid Enlargement, Masses Respiratory: Clear to Auscultation Cardiovascular: NL Sounds; No Murmurs; No JVD, - - S1S2 patty Abdominal: NL Sounds; No Tenderness; No Distention, No Hepatosplenomegaly Lymphatic: No Cervical Adenopathy Extremities: No Clubbing, Cyanosis Skin: No Rash or Ulcers Neurological: Alert and Oriented x 3 Result Diagrams: 09/10/16 19:55 09/10/16 19:55 Assess/Plan/Problems-Billing Assessment: Patient is a 55 year old with known history of reactive arthritis who [place] [facility] fever and redness and swelling of left elbow and elevated esr. - Patient Problems (1) Fever Current Visit: Yes Status: Acute Code(s): R50.9 - FEVER, UNSPECIFIED SNOMED Code(s): 799893642 Comment: Patient with known history of arthritis and elevated esr but never to this degree. Concern for infectious process or even osteo. Agree with IV antibiotics until ID can evaluate on Monday. Bone scan and TTE also ordered. Appreciate Rheumatology's input. Since he is improving it may very well not be infectious and may be a reactive arthritis flare. Will hold off on aspirating elbow at this time. (2) Arthritis Current Visit: Yes Status: Acute Code(s): M19.90 - UNSPECIFIED OSTEOARTHRITIS, UNSPECIFIED SITE SNOMED Code(s): 1834266 Comment: See above. Continue current treatment but may be just an acute flare. Await imaging results. Await ID's input. (3) Hypertension Current Visit: Yes Status: Acute Code(s): I10 - ESSENTIAL (PRIMARY) HYPERTENSION SNOMED Code(s): 97075579 Comment: Adequate control. Continue current treatment. (4) DVT prophylaxis Current Visit: Yes Status: Acute Code(s): XVC2119 - SNOMED Code(s): 351294520 Comment: Heparin subq (5) Full code status Current Visit: Yes Status: Acute Code(s): Z78.9 - OTHER SPECIFIED HEALTH STATUS SNOMED Code(s): 808510142
[2016-09-11] MEDS: Colchicine* 0.6 MG TAB PO SCH (21:02)
[2016-09-11] MEDS: cefTRIAXone VIAL(*) 1,000 MG in NS 0.9% 50 ML* 50 ML IVPB SCH (23:18)
[2016-09-12] MEDS: Vancomycin(*) 1,250 MG in NS 0.9% 250 ML* 250 ML IVPB SCH (04:09)
[2016-09-12] MEDS: Gentamicin 0.3% OPHTH.SOLN* 5 ML BTL RIGHT EYE SCH ×4 (04:13→12:19)
[2016-09-12] MEDS: Heparin VIAL(*) 5000 UNITS/ML VIAL (FIVE THOUSAND) SUBCUT SCH (05:31)
[2016-09-12] MEDS: Hydrochlorothiazide TAB* 25 MG PO SCH (09:58)
[2016-09-12] MEDS: Lisinopril TAB* 10 MG PO SCH (09:59)
[2016-09-12] MEDS: Allopurinol TAB* 100 MG PO SCH (10:00)
[2016-09-12 10:02] VITALS: BP 117/61
[2016-09-12] MEDS: sulfaSALAzine TAB* 500 MG PO SCH (10:45)
[2016-09-12] MEDS ORDERED: Vancomycin Trough Check NOTE FOLLOW UP ONE (11:30)
[2016-09-12 11:59] LABS: Vancomycin Trough 19.7 mcg/mL
--- NOTE | 2016-09-12 12:24 | RAD ---
CPT II: CPT II Codes: 3570F Indication: Left elbow pain and swelling. Three-phase bone scan over the upper extremities was performed. The study was performed after intravenous injection of 20.3 mCi of technetium 99m MDP. The flow phase demonstrates no evidence of increased flow in either elbow. Immediate blood pool images demonstrates no evidence of increased radiotracer uptake. Delayed images demonstrates no evidence of increased radiotracer uptake. Increased uptake is noted in the medial compartment of the left knee as well as in the left forefoot. This is consistent with degenerative change. IMPRESSION: NO EVIDENCE OF INCREASED FLOW OR UPTAKE IS NOTED IN THE LEFT ELBOW. INCREASED UPTAKE IN THE MEDIAL LEFT KNEE, DORSAL LEFT FOOT LIKELY REPRESENTS DEGENERATIVE CHANGE.
--- NOTE | 2016-09-12 14:55 | ECHO ---
Patient: SHANNAN MURRY [facility] Rec#: [id number] : 1960 Date: 09/12/2016 Age: 55y Height: 185 cm / 72.8 in Weight: 98 kg / 216.0 lbs Sex: M BSA: 2.22 Room#: 438 Admit Date#: 09/09/2016 Type: Inpatient Referring: Jf Christianson MD Reading: Saul Landin MD Poultry Picker: Michael Lakhani RDCS Transthoracic Echocardiogram Indication: POSSIBLE ENDOCARDITIS BP: 127/84 HR: 55 Rhythm: NSR Findings History: reactive,artthritis,HTN,CKD,STAGE 2 HLD,sickle cell trait chronic myositis Technical Comments: The study quality is fair. Completed 1330 Left Ventricle: The left ventricular chamber size is normal. Global left ventricular wall motion and contractility are within normal limits. The estimated ejection fraction is 55-60%. Left Atrium: The left atrium is mildly dilated. Right Ventricle: The right ventricular cavity size is normal. The right ventricular global systolic function is normal. Right Atrium: The right atrial cavity size is normal. Aortic Valve: The aortic valve is trileaflet. There is no evidence of aortic regurgitation. There is no evidence of aortic stenosis. There is no aortic vegetation present. Mitral Valve: The mitral valve leaflets appear normal. There is a trace of mitral regurgitation. There is no evidence of mitral stenosis. No vegetation is observed on the mitral valve. Tricuspid Valve: There is mild tricuspid regurgitation. The right ventricular systolic pressure is estimated at 36 mmHg. No vegetation is observed on the tricuspid valve. Pulmonic Valve: The pulmonic valve structure is not well visualized. Pericardium: There is no pericardial effusion. Aorta: There is no dilatation of the ascending aorta. There is no dilatation of the aortic arch. There is no dilation of the aortic root. Pulmonary Artery: The main pulmonary artery is not well visualized. Venous: The inferior vena cava appears normal in size. There is a greater than 50% respiratory change in the inferior vena cava dimension. Conclusions Global left ventricular wall motion and contractility are within normal limits. The estimated ejection fraction is 55-60%. The right ventricular global systolic function is normal. The aortic valve is trileaflet. There is no evidence of aortic regurgitation. The mitral valve leaflets appear normal. There is a trace of mitral regurgitation. There is mild tricuspid regurgitation. There is no pericardial effusion. Measurements Name Value Normal Range RVIDd (AP) 2D 2.5 cm (0.9 - 2.6) RVDdMajor (2D) 3 cm (2.2 - 4.4) IVSd (2D) 0.8 cm (0.6 - 1) LVPWd (2D) 0.7 cm (0.6 - 1) LVIDd (2D) 4.1 cm (3.6 - 5.4) LVIDs (2D) 2.8 cm - LV FS (2D) 30 % (25 - 45) Aortic Annulus 1.9 cm (1.4 - 2.6) Ao root diameter (2D) 3.1 cm (2.1 - 3.5) Ascending Ao 2.8 cm (2.1 - 3.4) Aortic arch 2.8 cm (1.8 - 3.4) LA dimension (AP) 2D 3.9 cm (2.3 - 3.8) LAd ISD 4CH 4.6 cm (2.9 - 5.3) LA ISD 4CH W 4.4 cm (2.5 - 4.5) Name Value Normal Range LA ESV SP 4CH (A/L) 72 ml - LA ESV SP 2CH (A/L) 100 ml - LA ESV BP (A/L) 93 ml - LA ESV BP (A/L) index 41.84 ml/m2 - LA ESV SP 4CH (MOD) 64 ml - LA ESV SP 2CH (MOD) 98 ml - Name Value Normal Range MV E-wave Vmax 0.79 m/sec - MV deceleration time 164 msec - MV A-wave Vmax 0.49 m/sec - MV E:A ratio 0.5 ratio - LV septal e' Vmax 0.11 m/sec - LV lateral e' Vmax 0.11 m/sec - LV E:e' septal ratio 7.2 ratio - LV E:e' lateral ratio 7.2 ratio - Name Value Normal Range LVOT diameter 2.1 cm - LVOT Vmax 0.9 m/sec - Name Value Normal Range TR Vmax 2.8 m/sec - TR peak gradient 33 mmHg - RAP 3 mmHg - RVSP 36 mmHg - IVC diameter 1.87 cm - Name Value Normal Range PV Vmax 1.3 m/sec -
--- NOTE | 2016-09-12 19:27 | CONS ---
CONSULTATION REPORT: DATE OF CONSULT: 09/12/16 REQUESTING PHYSICIAN: Dr. Gutiérrez. CONSULTING SERVICE: Infectious Disease. REASON FOR CONSULTATION: Left elbow pain and fever. IMPRESSION: 1. Left elbow pain, redness, and warmth, with fever and chills going on for about 2 or 3 days in the setting of history of reactive arthritis. He has had improvement in elbow symptoms, fevers resolved. His elbow exam is benign, except for mild edema and olecranon bursitis, which is not particularly inflamed. He may have had a cellulitis, though, if he did, it is definitely improving. Differential diagnosis does include synovitis from his reactive arthritis. If it is infection, Staph and Strep are the usual culprits. 2. Reactive arthritis with history of right elbow, knee, and ankle synovitis, been on prednisone recently. 3. Elevated C-reactive protein of 320 on admission, is down to 250 the following day after antibiotics. RECOMMENDATIONS: 1. Stop vancomycin and ceftriaxone. We will cover cellulitis with Clindamycin 300 mg by mouth 3 times a day for 5 more days. He will follow up with Dr. De Leon. There are plans for eventual etanercept treatment. 2. Check an HIV antibody, which he has given verbal consent for. HISTORY OF PRESENT ILLNESS: This is a 55-year-old male with reactive arthritis , admitted with left elbow pain, swelling, and fever. He has had years of joint involvement, has recently been on prednisone, and been following with Dr. De Leon. The left elbow has been more swollen and painful for a number of weeks and then for 2 or 3 days he had developed increasing pain in the medial joint area with some redness and swelling, and a couple of nights of low-grade fevers and chills, and came to the ER. He had a temperature of 38.3. He also had syncope at home and was unconscious. He has had an evaluation here, including chest x-ray that showed no active disease. Elbow x-ray showed soft tissue swelling and no fracture. He has been on telemetry. His white blood cell count was 10 on admission, is down to 7. His creatinine was 1.7, it is 1.3. Urinalysis was negative. He is followed by Dr. De Leon while here. He has not been hospitalized for infection in the past. He has had no recent HIV testing. PAST MEDICAL HISTORY: 1. Reactive arthritis. 2. Hyperuricemia. 3. Hypertension. 4. Chronic kidney disease, stage 2. 5. Sickle cell trait. 6. Hyperlipidemia. 7. Erectile dysfunction. 8. Chronic myositis. 9. Axonal polyneuropathy. 10. Status post right inguinal hernia repair. 11. Status post left knee arthroscopy. 12. Status post biceps tendon repair. MEDICATIONS: 1. Vancomycin. 2. Ceftriaxone. 3. Ibuprofen. 4. Lisinopril. 5. Heparin subcutaneous injection. 6. Colchicine. 7. Allopurinol. 8. Tylenol. 9. Sulfasalazine. ALLERGIES: DILTIAZEM. FAMILY HISTORY: No tuberculosis. No recurrent infections. His mother is and had hypertension. His father has diabetes and hypertension. SOCIAL HISTORY: He lives in [place]. He is a student at [employer]. No sick contacts. No injections or drugs. No recent partners. REVIEW OF SYSTEMS: All negative, except as noted above. PHYSICAL EXAMINATION: Vital Signs: Temperature is 36, heart rate is 60, respiratory rate 14, blood pressure 117/61, O2 sat 94% on room air. In general , he is not in distress or diaphoretic. Neurologically, he is awake and oriented x3. Follows all commands. Answers all questions appropriately. HEENT : There is no conjunctival hemorrhage. Oropharynx without lesions. Neck is supple, without nuchal rigidity. Lymphs: There is no cervical, supraclavicular , inguinal, axillary or epitrochlear lymphadenopathy. Lungs: Clear to auscultation bilaterally. Heart: Regular rate and rhythm, without murmurs, rubs or gallops. Abdomen is soft, nontender, nondistended, without hepatosplenomegaly. Skin: There is no rash or splinter hemorrhages. Musculoskeletal: There is no spinal tenderness to palpation. There is left elbow mild edema, decreased flexion. There is swelling about the olecranon bursa, without erythema, warmth or tenderness. In the area of previous erythema and tenderness there is mild warmth, no erythema, nontender. There is no crepitus or fluctuance. No pain pronation or supination of the right ankle. There is trace edema as well in the right knee. DIAGNOSTIC STUDIES/LAB DATA: White blood cell count 7, hemoglobin 10, platelets 256. Creatinine is 1.3. Please see impressions and recommendations outlined above, which I have discussed with Dr. Lim. Thank you for asking me to see Geo in consultation. [id number]/[facility] #: [id number] ZIGGY
--- NOTE | 2016-09-13 10:11 | DS ---
DISCHARGE SUMMARY: DATE OF ADMISSION: 09/09/16 DATE OF DISCHARGE: 09/12/16 PRIMARY CARE PROVIDER: Dr. Jf Christianson PUBLIC HEALTH ADMINISTRATOR: Dr. Emanuel De Leon PRIMARY DIAGNOSIS: Reactive arthritis. SECONDARY DIAGNOSES: Include: 1. Hypertension. 2. Polyarticular arthritis. 3. Suspected gout. 4. Chronic kidney disease. 5. Sickle cell trait. 6. Hyperlipidemia. 7. Erectile dysfunction. 8. Chronic myositis. 9. Axonal polyneuropathy. MEDICATIONS ON DISCHARGE: 1. Triamcinolone cream apply topically daily as needed. 2. Colchicine 0.6 mg every other day for 7 doses. 3. Multivitamin 1 tablet daily. 4. BuSpar 10 mg 3 times a day. 5. Viagra 50 mg daily as needed. 6. Zestoretic 21/06.5 one tablet daily. 7. Uloric 2 tablets daily. 8. Diclofenac 2 drops topically twice daily as needed. 9. Sulfasalazine 1000 mg in the morning and 500 mg at night. 10. Clindamycin 300 mg 3 times a day for 7 additional days. 11. Acetaminophen 650 mg every 4 hours as needed for pain. CONSULTATIONS OBTAINED DURING THE HOSPITAL STAY: Infectious Disease as well as Rheumatology. HISTORY OF PRESENT ILLNESS AND HOSPITAL COURSE: This is a 55-year-old man with past medical history of suspected reactive arthritis, presented to the hospital on 09/09/16 with palpitations and a fever. T-max is 100.9 recorded on the day of admission, a little effusion in his left elbow as well as pain in his right knee and right ankle. He was noted with an ESR of greater than 100 as well as CRP 318, creatinine 1.7, and a white count of 10.9. There was concern for potentially septic arthritis, crystal arthropathy or possibly even underlying bone infection. He was admitted to the hospital and started on IV antibiotics. Of note, sampling of the fluid of his right knee at Dr. De Leon's office prior to the presentation for this hospital stay did not indicate infectious etiology nor crystal arthropathy. The patient improved on antibiotics as well as colchicine and allopurinol. In Dr. De Leon's opinion on consultation, it was thought to be a reactive arthritis. He is discharged on colchicine for its antiinflammatory effects. His allopurinol was not continued. However, the patient is already on Uloric as an outpatient. NSAIDs were discontinued. The patient has noted cellulitis over his left elbow, which had resolved by the time of discharge. However, he was continued on oral antibiotics on discharge to complete a complete course of antibiotics. His left elbow fluid was not sampled nor was it recommended by his horse show judge when seen in consultation. On the day of discharge, the patient was ambulating around the hospital without complaint. He had full range of motion in all of his joints without any pain. His fevers had abated. He had no white blood cell count. The patient is to follow up with Dr. De Leon as well as his primary care provider on discharge. At followup, please: 1. Evaluate continued resolution of inflammatory markers. 2. Evaluate for continued stability of kidney function. 3. No other specific labs or vitals that need followup. Reasons to return to the hospital including, but not limited to, recurrent or worsening symptoms, chest pain, shortness of breath, nausea, vomiting, lightheadedness, loss of consciousness, fevers, chills, swelling of his joints discussed with the patient. He acknowledged understanding. TIME SPENT: Greater than 45 minutes were spent on the discharge of this patient ; greater than half was [id number] with the patient. CC: Dr. Jf Christianson; Dr. Emanuel De Leon* [id number]/[facility] #: [id number] [facility]
[2016-09-13 14:33] LABS: Rheumatoid Factor <15 IU/mL (<15)
[2016-09-28 16:34] LABS: Mi-2 Antibody Negative (Negative); SRP Antibody Negative (Negative); U2-nRNP Antibody Negative (Negative)
== END 2016-09-12 14:24 | disposition home or self-care (01) | DRG 346 ==
LOC: ED 19:12 → MEDTELE 23:26
PROVIDERS: ADMIT Internal Medicine; ATTEND Internal Medicine
DX: M02.32 Reiter's disease, elbow (principal); N18.3 Chronic kidney disease, stage 3 (moderate); G62.89 Other specified polyneuropathies; M10.9 Gout, unspecified; Z83.3 Family history of diabetes mellitus; Z88.8 Allergy status to other drugs, medicaments and biological substances; D57.3 Sickle-cell trait; I25.10 Atherosclerotic heart disease of native coronary artery without angina pectoris; E78.00 Pure hypercholesterolemia, unspecified; M17.12 Unilateral primary osteoarthritis, left knee; F41.9 Anxiety disorder, unspecified; I12.9 Hypertensive chronic kidney disease with stage 1 through stage 4 chronic kidney disease, or unspecified chronic kidney disease; M60.88 Other myositis, other site; Z82.49 Family history of ischemic heart disease and other diseases of the circulatory system; Z82.5 Family history of asthma and other chronic lower respiratory diseases; I25.2 Old myocardial infarction; H57.8 Other specified disorders of eye and adnexa; M79.89 Other specified soft tissue disorders; N52.9 Male erectile dysfunction, unspecified; M25.561 Pain in right knee; M25.571 Pain in right ankle and joints of right foot
CPT/HCPCS: 36415; 71020; 78315; 80053; 80202; 81003; 82164; 82550; 82565; 82585; 82595; 82607; 82728; 82746; 83516; 83605; 83735; 84484; 84520; 84550; 85025; 85610; 85652; 85730; 86038; 86140; 86200; 86431; 86618; 86703; 86812; 87040; 93005; 93306; A9270-GY; A9503; J0696; J1644; J3370

== ENCOUNTER 2017-04-03 11:55 | Emergency (ER) | payer OTHER ==
[2017-04-03] MEDS ORDERED: Ibuprofen TAB* 600 MG PO ONE (13:46)
[2017-04-03] MEDS ORDERED: Tetracaine 0.5% OPTH.SOL 4 ML* 1 DROP BTL RIGHT EYE ONE (13:55)
[2017-04-03] MEDS ORDERED: Fluorescein Sodium TOPICAL* 1 MG TEST OPHTHALMIC ONE (13:55)
[2017-04-03] MEDS ORDERED: Fluorescein Sodium TOPICAL* 1 MG TEST ONE (13:56)
[2017-04-03] MEDS ORDERED: Tetracaine 0.5% OPTH.SOL 15ML* BTL ONE (13:56)
--- NOTE | 2017-04-03 14:27 | ED ---
Throat Pain/Nasal Congestion - HPI Summary HPI Summary: 56 male presents to ED with complaints of right eye redness, pain, discharge and itching that began last night and worsened this morning. Some swelling surrounding right eye. Patient states he woke up with yellow-crusted purulent discharge this morning with some blurred vision. No loss of vision or changes to vision currently. States eye is very irritating and he is trying not to touch and itch it. Thinks he has pink eye. Did not get any known substance into eye. Denies any other PMHx or problems with eye. Unknown sick contact. Left eye normal. No other symptoms or complaints. No fever/chills. No PMHx. Does not wear contacts. - History of Current Complaint Chief Complaint: EDEyeProblem Time Seen by Provider: 04/03/17 12:15 Hx Obtained From: Patient Onset/Duration: Sudden Onset, Still Present, Worse Since Severity: Moderate Cough: None - Allergies/Home Medications Allergies/Adverse Reactions: Allergies Allergy/AdvReac Type Severity Reaction Status Date / Time Diltiazem Allergy INFECTION Verified 04/03/17 12:08 -ARMS AND LEGS PMH/Surg Hx/FS Hx/Imm Hx Endocrine/Hematology History: Reports: Hx Sickle Cell Disease - SICKLE CELL TRAIT Denies: Hx Anticoagulant Therapy, Hx Diabetes, Hx Thyroid Disease, Other Endocrine/Hematological Disorders Cardiovascular History: Reports: Hx Coronary Artery Disease - CHOLESTEROL HAS BEEN UP & DOWN, Hx Hypercholesterolemia, Hx Hypertension - ON MEDICATION FOR Denies: Hx Pacemaker/ICD, Other Cardiovascular Problems/Disorders Respiratory History: Denies: Hx Asthma, Hx Chronic Obstructive Pulmonary Disease (COPD), Other Respiratory Problems/Disorders GI History: Denies: Hx Ulcer, Other GI Disorders History: Reports: Other Problems/Disorders - KIDNEY FUNCTION LEVELS ARE HIGH PER PATIENT Denies: Hx Dialysis, Hx Renal Disease Musculoskeletal History: Reports: Hx Arthritis - LEFT KNEE, Other Musculoskeletal History - Gout Sensory History: Reports: Hx Contacts or Glasses Denies: Hx Hearing Aid, Other Sensory Impairments Opthamlomology History: Reports: Hx Contacts or Glasses Denies: Other Sensory Impairments Neurological History: Denies: Other Neuro Impairments/Disorders Psychiatric History: Reports: Hx Anxiety - HISTORY OF - ON MEDICATION FOR Denies: Hx Panic Disorder, Other Psychiatric Issues/Disorders - Surgical History Surgery Procedure, Year, and Place: RIGHT ARM STITCHING-38+STITCHES(1984)- [facility]. 2013-LEFT INGUINAL HERNIA REPAIR. RT KNEE AND LEFT KNEE SURGERY 12/03/1309/13/2014 AT [facility] Hx Anesthesia Reactions: No - Immunization History Date of Tetanus Vaccine: UTD Date of Influenza Vaccine: NONE Immunizations Up to Date: Yes Infectious Disease History: No Infectious Disease History: Denies: Hx Hepatitis, Hx Human Immunodeficiency Virus (HIV), Traveled Outside the [place] in Last 30 Days - Family History Known Family History: Positive: Unknown, Diabetes, Other - Negative malignant hyperthermia Negative: Blood Disorder - Social History Alcohol Use: Occasionally Alcohol Amount: 1 DRINK EVERY FEW MONTHS Hx Substance Use: No Substance Use Type: Reports: None Hx Tobacco Use: No Smoking Status (MU): Never Smoked Tobacco Review of Systems Constitutional: Negative Positive: Drainage, Erythema ENT: Negative Cardiovascular: Negative Respiratory: Negative Musculoskeletal: Negative Neurological: Negative All Other Systems Reviewed And Are Negative: Yes Physical Exam Triage Information Reviewed: Yes Vital Signs On Initial Exam: Initial Vitals Temp Pulse Resp BP Pulse Ox 98.4 F 67 16 135/91 97 04/03/17 12:08 04/03/17 12:08 04/03/17 12:08 04/03/17 12:08 04/03/17 12:08 Vital Signs Reviewed: Yes Appearance: Positive: Well-Appearing, No Pain Distress, Well-Nourished Skin: Positive: Warm, Skin Color Reflects Adequate Perfusion, Dry. Negative: Cold, Numb, Cyanosis @, Pale, Erythema @ Head/Face: Positive: Normal Head/Face Inspection. Negative: Scalp Eyes: Positive: EOMI, MARY, Conjunctiva Inflammed - injected, Discharge - yellow -white purulent and crusting right eye, normal left eye. some surrounding edema of eye lids, no concern for periorbital cellulitis at this time however, Other: - fundoscopic exam unsucessful due to miosis. fluroscein stain completed and normal without obvious signs of corneal abrasion or foreign body. normal visual acuity. ENT: Positive: Normal ENT inspection, Hearing grossly normal, Pharynx normal, TMs normal Neck: Positive: Supple, Nontender, No Lymphadenopathy Respiratory/Lung Sounds: Positive: Clear to Auscultation, Breath Sounds Present. Negative: Rales, Rhonchi, Wheezes Cardiovascular: Positive: Normal, RRR, Pulses are Symmetrical in both Upper and Lower Extremities. Negative: Murmur, Rub Musculoskeletal: Positive: Normal, Strength/ROM Intact Neurological: Positive: Normal, Sensory/Motor Intact, Alert, Oriented to Person Place, Time, NV Bundle Intact Distally, Normal Gait - [place] Coma Scale Coma Scale Total: 15 Procedures - Eye Procedure Alcaine Drops Administered: Yes - tolerated procedure well without complication , no FB Eye Irrigated w/ Saline (ccs): 100 Diagnostics - Vital Signs Vital Signs Temp Pulse Resp BP Pulse Ox 04/03/17 12:08 98.4 F 67 16 135/91 97 - Laboratory Lab Statement: Any lab studies that have been ordered have been reviewed, and results considered in the medical decision making process. EENT Course/Dx - Course Course Of Treatment: fluroscein stain obtained and unremarkable. tolerated proecedure well, without complication. appears to be suffering from conjunctivitis. given antibiotic drops to use at home. continue warm/cool compresses. given ibuprofen, continue at home for swelling and pain. follow up with pcp and optho if symptoms worsen or do not improve. aware of worsening signs and symptoms to watch out for, return if occur. no concern for any other emergent etiology at this time due to HPI and PE findings. - Differential Diagnoses Differential Diagnoses: Conjunctivitis, Corneal Abrasion, Foreign Body - Diagnoses Provider Diagnoses: Acute purulent conjunctivitis, right eye Discharge - Discharge Plan Condition: Stable Disposition: HOME Prescriptions: Erythromycin OPHTH.OINT* [Ilotycin OPHTH.OINT*] 1 applic RIGHT EYE QID #1 ophth.oint Patient Education Materials: Conjunctivitis (ED) Referrals: Jf Christianson MD [Primary Care Provider] - Additional Instructions: Use prescribed antibiotic drop as directed. Keep clean and dry. Wash hands frequently. If symptoms spread into left eye, use ointment in that eye as well. Warm/cool compresses as discussed. Ibuprofen for pain and inflammation. If symptoms worsen or do not improve please seek medical attention promptly.
[2017-04-03 14:38] VITALS: BP 132/77
== END 2017-04-03 14:38 | disposition home or self-care (01) ==
LOC: ED 11:55
DX: H10.9 Unspecified conjunctivitis (principal)
CPT/HCPCS: 96374; 99282; A9270-GY

== ENCOUNTER 2017-08-11 09:49 | Emergency (ER) | payer SELFPAY ==
[2017-08-11] MEDS ORDERED: Cephalexin CAP* 500 MG PO ONE (11:03)
[2017-08-11] MEDS ORDERED: Erythromycin TOPICAL GEL* 30 GM TUBE TOPICAL ONE (11:03)
[2017-08-11] MEDS ORDERED: Erythromycin OPTH OINT* APPLIC OINT ONE (11:37)
[2017-08-11] MEDS ORDERED: Erythromycin OPTH OINT* APPLIC OINT RIGHT EYE ONE (11:41)
[2017-08-11 11:52] LABS: ABS Basophils 0.1 10^3/ul (0-0.2); ABS Eosinophils 0.1 10^3/ul (0-0.6); ABS Lymphocytes 2.1 10^3/ul (1.0-4.8); ABS Monocytes 0.5 10^3/ul (0-0.8); ABS Nucleated RBC 0 10^3/ul; Eosinophil % 1.7 % (0-6); Hematocrit 42 % (42-52); Hemoglobin 14.1 g/dl (14.0-18.0); Lymphocyte % 44.4 % (25-47); Mean Corpuscular HGB Conc 34 g/dl (31-36); Mean Corpuscular Hemoglobin 29 pg (27-31); Mean Corpuscular Volume 87 fL (80-94); Mean Platelet Volume 9 um3 (7.4-10.4); Nucleated Red Blood Cells % 0.2; Platelet Count 185 10^3/ul (150-450); Red Blood Count 4.83 10^6/ul (4.0-5.4); Red Cell Distribution Width 14 % (10.5-15); White Blood Count 4.8 10^3/ul (3.5-10.8)
[2017-08-11 12:05] LABS: EGFR Non-African American 51.1 (>60)
[2017-08-11 12:13] VITALS: BP 138/83
--- NOTE | 2017-08-11 14:35 | ED ---
Throat Pain/Nasal Congestion - HPI Summary HPI Summary: Patient is an otherwise healthy 52-year-old female who presents to the ED with right swollen upper eyelid since this morning. He endorses slight discomfort in the upper lid last evening and scratched the area. He awoke this morning with swelling, slight redness, without warmth or tingling. The upper eyelid is swollen and covering the eye. He is able to open the eye with manipulation. Denies any visual changes from the eye. Slight mucopurulent discharge in the medial canthus of the eye. Denies history of conjunctivitis, blepharitis, orbital cellulitis or MRSA. He is feeling otherwise well, denies any fevers, sweats, chills. Denies any other systemic illness. He does not wear contacts. - History of Current Complaint Chief Complaint: EDEyeProblem Time Seen by Provider: 08/11/17 10:05 Hx Obtained From: Patient Onset/Duration: Sudden Onset Severity: Moderate Associated Signs And Symptoms: Positive: Negative Cough: Nonproductive - Epiglottits Risk Factors Epiglottis Risk Factors: Negative - Allergies/Home Medications Allergies/Adverse Reactions: Allergies Allergy/AdvReac Type Severity Reaction Status Date / Time MS Diltiazem [Diltiazem] Allergy INFECTION Verified 08/11/17 09:57 -ARMS AND LEGS PMH/Surg Hx/FS Hx/Imm Hx Previously Healthy: Yes Endocrine/Hematology History: Reports: Hx Sickle Cell Disease - SICKLE CELL TRAIT Denies: Hx Anticoagulant Therapy, Hx Diabetes, Hx Thyroid Disease, Other Endocrine/Hematological Disorders Cardiovascular History: Reports: Hx Coronary Artery Disease - CHOLESTEROL HAS BEEN UP & DOWN, Hx Hypercholesterolemia, Hx Hypertension - ON MEDICATION FOR Denies: Hx Pacemaker/ICD, Other Cardiovascular Problems/Disorders Respiratory History: Denies: Hx Asthma, Hx Chronic Obstructive Pulmonary Disease (COPD), Other Respiratory Problems/Disorders GI History: Denies: Hx Ulcer, Other GI Disorders History: Reports: Other Problems/Disorders - KIDNEY FUNCTION LEVELS ARE HIGH PER PATIENT Denies: Hx Dialysis, Hx Renal Disease Musculoskeletal History: Reports: Hx Arthritis - LEFT KNEE, Other Musculoskeletal History - Gout Sensory History: Reports: Hx Contacts or Glasses Denies: Hx Hearing Aid, Other Sensory Impairments Opthamlomology History: Reports: Hx Contacts or Glasses Denies: Other Sensory Impairments Neurological History: Denies: Other Neuro Impairments/Disorders Psychiatric History: Reports: Hx Anxiety - HISTORY OF - ON MEDICATION FOR Denies: Hx Panic Disorder, Other Psychiatric Issues/Disorders - Surgical History Surgery Procedure, Year, and Place: RIGHT ARM STITCHING-38+STITCHES(1984[facility] 2012-LEFT INGUINAL HERNIA REPAIR. RT KNEE AND LEFT KNEE SURGERY 12/03[place]1309/13[place] [facility] [place] LEG 10/2016 Hx Anesthesia Reactions: No - Immunization History Date of Tetanus Vaccine: UTD Date of Influenza Vaccine: NONE Hx Pertussis Vaccination: No Immunizations Up to Date: Unable to Obtain/Confirm Infectious Disease History: No Infectious Disease History: Denies: Hx Hepatitis, Hx Human Immunodeficiency Virus (HIV), Traveled Outside the US in Last 30 Days - Family History Known Family History: Positive: Unknown, Diabetes, Other - Negative malignant hyperthermia Negative: Blood Disorder - Social History Occupation: Employed Full-time Lives: With Family Alcohol Use: Occasionally Alcohol Amount: 1 DRINK EVERY FEW MONTHS Hx Substance Use: No Substance Use Type: Reports: None Hx Tobacco Use: No Smoking Status (MU): Never Smoked Tobacco Review of Systems Constitutional: Negative Negative: Fever, Chills, Fatigue, Skin Diaphoresis Positive: Other - swelling and erythema to the upper eyelid Cardiovascular: Negative Respiratory: Negative Genitourinary: Negative Positive: no symptoms reported, see HPI Musculoskeletal: Negative Skin: Negative Neurological: Negative All Other Systems Reviewed And Are Negative: Yes Physical Exam Triage Information Reviewed: Yes Vital Signs On Initial Exam: Initial Vitals Temp Pulse Resp BP Pulse Ox 97.5 F 61 16 118/82 95 08/11/17 09:57 08/11/17 09:57 08/11/17 09:57 08/11/17 09:57 08/11/17 09:57 Vital Signs Reviewed: Yes Appearance: Positive: Well-Appearing, Well-Nourished Skin: Positive: Warm, Skin Color Reflects Adequate Perfusion Head/Face: Positive: Normal Head/Face Inspection Eyes: Positive: EOMI, MARY Diagnostics - Vital Signs Vital Signs Temp Pulse Resp BP Pulse Ox 08/11/17 12:10 97.3 F 54 17 138/83 93 08/11/17 09:57 97.5 F 61 16 118/82 95 - Laboratory Lab Results: Lab Results 08/11/17 08/11/17 Range/Units 11:39 11:39 WBC 4.8 (3.5-10.8) 10^3/ul RBC 4.83 (4.0-5.4) 10^6/ul Hgb 14.1 (14.0-18.0) g/dl Hct 42 (42-52) % MCV 87 (80-94) fL MCH 29 (27-31) pg MCHC 34 (31-36) g/dl RDW 14 (10.5-15) % Plt Count 185 (150-450) 10^3/ul MPV 9 (7.4-10.4) um3 Neut % (Auto) 42.2 (38-83) % Lymph % (Auto) 44.4 (25-47) % Pershing % (Auto) 9.7 H (1-9) % Eos % (Auto) 1.7 (0-6) % Baso % (Auto) 2.0 (0-2) % Absolute Neuts (auto) 2.0 (1.5-7.7) 10^3/ul Absolute Lymphs (auto) 2.1 (1.0-4.8) 10^3/ul Absolute Monos (auto) 0.5 (0-0.8) 10^3/ul Absolute Eos (auto) 0.1 (0-0.6) 10^3/ul Absolute Basos (auto) 0.1 (0-0.2) 10^3/ul Absolute Nucleated RBC 0 10^3/ul Nucleated RBC % 0.2 Sodium 136 (133-145) mmol/L Potassium 3.9 (3.5-5.0) mmol/L Chloride 99 L (101-111) mmol/L Carbon Dioxide 33 H (22-32) mmol/L Anion Gap 4 (2-11) mmol/L BUN 16 (6-24) mg/dL Creatinine 1.44 H (0.67-1.17) mg/dL Est GFR ( Amer) 65.7 (>60) Est GFR (Non-Af Amer) 51.1 (>60) BUN/Creatinine Ratio 11.1 (8-20) Glucose 112 H (70-100) mg/dL Calcium 10.6 H (8.6-10.3) mg/dL Total Bilirubin 0.40 (0.2-1.0) mg/dL AST 56 H (13-39) U/L ALT 55 H (7-52) U/L Alkaline Phosphatase 70 (34-104) U/L Total Protein 7.2 (6.4-8.9) g/dL Albumin 4.1 (3.2-5.2) g/dL Globulin 3.1 (2-4) g/dL Albumin/Globulin Ratio 1.3 (1-3) Result Diagrams: 08/11/17 11:39 08/11/17 11:39 Lab Statement: Any lab studies that have been ordered have been reviewed, and results considered in the medical decision making process. EENT Course/Dx - Course Course Of Treatment: During the course of treatment, the patient is evaluated for right upper eyelid swelling with only slight erythema but no warmth. Likely caused by an overgrowth of bacteria from a blepharitis or a stye. Moist compresses given on arrival. Erythromycin ointment and Keflex encouraged. This does not appear to be a preseptal or orbital cellulitis as only the upper eyelid is affected. There is no entrapment in the eye. Extraocular movements intact. Pupillary response equal to light bilaterally. Denies any previous issues with the eyes and wears no contacts. I have advised Keflex to protect against a worsening bacterial infection. He will follow-up with Dr. Alexander ( ophthalmology) for any worsening symptoms he understands to call today or return to the ED for any worsening symptoms to which I have described. - Diagnoses Provider Diagnoses: Swelling of eyelid Discharge - Discharge Plan Condition: Stable Disposition: HOME Prescriptions: Cephalexin CAP* [Keflex CAP*] 500 mg PO QID #20 cap MDD 4 Patient Education Materials: Stye (ED), Blepharitis (ED) Referrals: Jf Christianson MD [Primary Care Provider] - Emanuel Alexander MD [Medical Doctor] - Additional Instructions: Warm compresses for 20 minutes at a time several times per day Erythromycin ointment: Instill ~1 cm ribbon into affected eye(s) up to 6 times daily Keflex 4 times daily 5 days Please follow-up with ophthalmology if symptoms persist
== END 2017-08-11 12:13 | disposition home or self-care (01) ==
LOC: ED 09:49
DX: H02.841 Edema of right upper eyelid (principal); Z88.8 Allergy status to other drugs, medicaments and biological substances
CPT/HCPCS: 36415; 80053; 85025; 99282; A9270-GY

== ENCOUNTER 2018-11-28 12:56 | Emergency (ER) | payer BC ==
[2018-11-28 13:07] VITALS: BP 120/87
== END 2018-11-28 15:39 | disposition left against medical advice (07) ==
LOC: ED 12:56
DX: R11.10 Vomiting, unspecified (principal); Z53.21 Procedure and treatment not carried out due to patient leaving prior to being seen by health care provider

== ENCOUNTER 2018-12-01 09:37 | Emergency (ER) | payer BC ==
--- NOTE | 2018-12-01 10:33 | ED ---
Abdominal Pain/Male - HPI Summary HPI Summary: This patient is a 58 year old M presenting to [facility] with a chief complaint of persistent diarrhea and vomiting with back and abdominal pain for the past four days. Pain rated 5/10 upon triage. Patient additionally reports night sweats and chills. Patient denies blood in stool, CP, SOB, recent abx use , and recent travel. Patient had an MRI, ordered by Dr. Braswell, of the left shoulder this morning. Reports previous hernia repair in 2012. - History of Current Complaint Chief Complaint: EDNauseaVomitDiarrh Stated Complaint: "DIARRHEA PER PT" Time Seen by Provider: 12/01/18 10:17 Hx Obtained From: Patient Onset/Duration: Lasting Days Timing: Constant Pain Intensity: 5 Pain Scale Used: 0-10 Numeric Location: Diffuse - back and abdomen, Other Alleviating Factor(s): Nothing Associated Signs And Symptoms: Positive: Fever, Back Pain, Vomiting, Diarrhea - Allergies/Home Medications Allergies/Adverse Reactions: Allergies Allergy/AdvReac Type Severity Reaction Status Date / Time diltiazem Allergy See Comment Verified 12/01/18 09:52 Home Medications: Home Medications Allopurinol TAB* [Zyloprim 300 MG TAB*] 300 mg PO DAILY 12/01/18 [History Confirmed 12/01/18] PMH/Surg Hx/FS Hx/Imm Hx Endocrine/Hematology History: Reports: Hx Sickle Cell Disease - SICKLE CELL TRAIT Denies: Hx Anticoagulant Therapy, Hx Diabetes, Hx Thyroid Disease, Other Endocrine/Hematological Disorders Cardiovascular History: Reports: Hx Coronary Artery Disease - CHOLESTEROL HAS BEEN UP & DOWN, Hx Hypercholesterolemia, Hx Hypertension - ON MEDICATION FOR Denies: Hx Pacemaker/ICD, Other Cardiovascular Problems/Disorders Respiratory History: Denies: Hx Asthma, Hx Chronic Obstructive Pulmonary Disease (COPD), Other Respiratory Problems/Disorders GI History: Denies: Hx Ulcer, Other GI Disorders History: Reports: Other Problems/Disorders - KIDNEY FUNCTION LEVELS ARE HIGH PER PATIENT Denies: Hx Dialysis, Hx Renal Disease Musculoskeletal History: Reports: Hx Arthritis - LEFT KNEE, Other Musculoskeletal History - Gout Sensory History: Reports: Hx Contacts or Glasses Denies: Hx Hearing Aid, Other Sensory Impairments Opthamlomology History: Reports: Hx Contacts or Glasses Denies: Other Sensory Impairments Neurological History: Denies: Other Neuro Impairments/Disorders Psychiatric History: Reports: Hx Anxiety - HISTORY OF - ON MEDICATION FOR Denies: Hx Panic Disorder, Other Psychiatric Issues/Disorders - Surgical History Surgery Procedure, Year, and Place: RIGHT ARM STITCHING-38+STITCHES(1984)- [facility]. 2012-LEFT INGUINAL HERNIA REPAIR. RT KNEE AND LEFT KNEE SURGERY 12/0309/13/2014 AT [facility] [place]. BIOPSY LEFT LEG 10/2016 Hx Anesthesia Reactions: No - Immunization History Date of Tetanus Vaccine: UTD Date of Influenza Vaccine: NONE Infectious Disease History: No Infectious Disease History: Denies: Hx Hepatitis, Hx Human Immunodeficiency Virus (HIV), Traveled Outside the US in Last 30 Days - Family History Known Family History: Positive: Diabetes, Other - Negative malignant hyperthermia Negative: Blood Disorder - Social History Alcohol Use: Occasionally Alcohol Amount: 1 DRINK EVERY FEW MONTHS Hx Substance Use: No Substance Use Type: Reports: None Hx Tobacco Use: No Smoking Status (MU): Never Smoked Tobacco Review of Systems Positive: Fever, Chills Negative: Chest Pain Negative: Shortness Of Breath Gastrointestinal: Negative - bloody stool Positive: Vomiting, Diarrhea, Nausea Positive: Myalgia - back pain All Other Systems Reviewed And Are Negative: Yes Physical Exam - Summary Physical Exam Summary: GENERAL: Patient is a well-developed and nourished M who is lying comfortable in the stretcher. Patient is not in any acute respiratory distress. HEAD AND FACE: Normocephalic EYES: PERRLA, EOMI x 2. EARS: Hearing grossly intact. MOUTH: Oropharynx within normal limits. NECK: Supple, trachea is midline, no adenopathy, no JVD, no carotid bruit. CHEST: Symmetric, no tenderness at palpation LUNGS: Clear to auscultation bilaterally. No wheezing or crackles. CVS: Regular rate and rhythm, S1 and S2 present, no murmurs or gallops appreciated. ABDOMEN: Soft, non-tender. Bowel sounds are normal. No abnormal abdominal pulsations. EXTREMITIES: Full ROM in all major joints, no edema, no cyanosis or clubbing. NEURO: Alert and oriented x 3. No acute neurological deficits. Speech is normal and follows commands. SKIN: Dry and warm Triage Information Reviewed: Yes Vital Signs On Initial Exam: Initial Vitals Temp Pulse Resp BP Pulse Ox 97.7 F 67 16 112/72 97 12/01/18 09:45 12/01/18 09:45 12/01/18 09:45 12/01/18 09:45 12/01/18 09:45 Vital Signs Reviewed: Yes Diagnostics - Vital Signs Vital Signs Temp Pulse Resp BP Pulse Ox 12/01/18 09:45 97.7 F 67 16 112/72 97 - Laboratory Result Diagrams: 12/01/18 11:05 12/01/18 11:05 Lab Statement: Any lab studies that have been ordered have been reviewed, and results considered in the medical decision making process. - CT A/P CT Interpretation Completed By: Radiologist Summary of CT Findings: 1. CT findings are consistent with duodenitis. If it'll influence clinical management. further characterization could be made with endoscopy. 2. Diverticulosis without acute inflammatory change involving the colon consistent with diverticulitis. 3. Chronic and degenerative changes noted in the body report unlikely to be directly. related to the patient's current presentation. ED Physician has reviewed this report. Abdominal Pain Male Course/Dx - Course Course Of Treatment: 58 year old M presenting to [facility] with a chief complaint of persistent diarrhea and vomiting with back and abdominal pain for the past four days. Bloodwork and UA without significant abnormalities. Patient is given IV fluids, 4mg Zofran, 80mg Protonix. CT A/P reveals, ". 1. CT findings are consistent with duodenitis. If it'll influence clinical management. further characterization could be made with endoscopy. 2. Diverticulosis without acute inflammatory change involving the colon consistent with diverticulitis. 3. Chronic and degenerative changes noted in the body report unlikely to be directly. related to the patient's current presentation." as per radiologist. I discussed results with patient, and he reports feeling better. He is hemodynamically stable and safe for discharge. Strict return precautions given and he is instructed to follow up with GI for an upper endoscopy and for further evaluation of duodenitis. Patient is agreeable to this plan. - Diagnoses Provider Diagnoses: Duodenitis, Diverticulosis Discharge - Sign-Out/Discharge Documenting (check all that apply): Patient Departure - discharge Patient Received Moderate/Deep Sedation with Procedure: No - Discharge Plan Condition: Stable Disposition: HOME Prescriptions: Pantoprazole TAB * [Protonix TAB*] 40 mg PO DAILY #30 tab Patient Education Materials: Diverticulosis (ED), Duodenitis (ED) Forms: *Work Release Referrals: Franky Regalado MD [Medical Doctor] - 2 Days (Follow up with GI.) Additional Instructions: You need to follow up with GI for an upper endoscopy and further evaluation of the duodenitis. RETURN TO THE EMERGENCY DEPARTMENT FOR CHANGING OR WORSENING SYMPTOMS. - Billing Disposition and Condition Condition: STABLE Disposition: Home - Attestation Statements Document Initiated by Octavio: Yes Documenting Scribe: Shannan Harper Provider For Whom Octavio is Documenting (Include Credential): Jeremy Baptiste MD Scribe Attestation: IShannan, scribed for Jeremy Baptiste MD on 12/01/18 at 2102. Scribe Documentation Reviewed: Yes Provider Attestation: The documentation as recorded by the Shannan issa accurately reflects the service I personally performed and the decisions made by , Jeremy Baptiste MD Status of Scribe Document: Viewed
[2018-12-01] MEDS ORDERED: NS 0.9% 1000 ML** 1,000 ML IV ONE (10:34)
[2018-12-01] MEDS ORDERED: Ondansetron INJ* 2 MG/ML VIAL IV ONE (10:38)
[2018-12-01 11:15] LABS: ABS Eosinophils 0.1 10^3/ul (0-0.6); ABS Lymphocytes 1.6 10^3/ul (1.0-4.8); ABS Monocytes 0.5 10^3/ul (0-0.8); ABS Neutrophils 1.8 10^3/ul (1.5-7.7); Eosinophil % 2.6 %; Hematocrit 42 % (42-52); Hemoglobin 13.9 g/dL (14.0-18.0); Mean Corpuscular HGB Conc 33 g/dL (31-36); Mean Corpuscular Hemoglobin 29 pg (27-31); Mean Corpuscular Volume 87 fL (80-94); Nucleated Red Blood Cells % 0.1; Platelet Count 174 10^3/uL (150-450); Red Cell Distribution Width 14 % (10.5-15)
[2018-12-01 11:18] LABS: Urine Appearance Clear; Urine Bilirubin Negative (Negative); Urine Blood Negative (Negative); Urine Color Yellow; Urine Glucose Negative (Negative); Urine Ketones Negative (Negative); Urine Nitrite Negative (Negative); Urine Protein Negative (Negative); Urine Specific Gravity 1.012 (1.010-1.030); Urine Urobilinogen Negative (Negative)
[2018-12-01 11:24] LABS: Activated Partial Thrombo Time 36.2 seconds (26.0-38.0); INR 0.99 (0.82-1.09)
[2018-12-01 11:31] LABS: ALT 41 U/L (7-52); Albumin 3.8 g/dL (3.2-5.2); Albumin/Globulin Ratio 1.2 (1-3); Alkaline Phosphatase 88 U/L (34-104); BUN/Creatinine Ratio 17.9 (8-20); Blood Urea Nitrogen 24 mg/dL (6-24); C Reactive Protein 4.56 mg/L (<8.01); CO2 Carbon Dioxide 30 mmol/L (22-32); Calcium 9.2 mg/dL (8.6-10.3); Chloride 103 mmol/L (101-111); EGFR African American 66.7 (>60); EGFR Non-African American 55.1 (>60); Globulin 3.1 g/dL (2-4); Glucose 107 mg/dL (70-100); Magnesium 1.8 mg/dL (1.9-2.7); Sodium 137 mmol/L (135-145); Total Protein 6.9 g/dL (6.4-8.9)
[2018-12-01] MEDS ORDERED: Iodixanol* (CONTRAST) 320 MG/ML 100 ML SDV IV ONE (11:44)
[2018-12-01 12:25] LABS: Anion Gap 4 mmol/L (2-11); Potassium 3.9 mmol/L (3.5-5.0)
[2018-12-01 12:30] LABS: AST 32 U/L (13-39)
[2018-12-01] MEDS ORDERED: Pantoprazole IV* 40 MG IV ONE (13:06)
[2018-12-01 13:59] VITALS: BP 129/77
== END 2018-12-01 13:58 | disposition home or self-care (01) ==
LOC: ED 09:37
DX: K29.80 Duodenitis without bleeding (principal); K57.90 Diverticulosis of intestine, part unspecified, without perforation or abscess without bleeding; D57.3 Sickle-cell trait; I10 Essential (primary) hypertension; I25.10 Atherosclerotic heart disease of native coronary artery without angina pectoris; E78.00 Pure hypercholesterolemia, unspecified; M10.9 Gout, unspecified; F41.9 Anxiety disorder, unspecified; Z79.899 Other long term (current) drug therapy; Z88.8 Allergy status to other drugs, medicaments and biological substances
CPT/HCPCS: 36415; 74177; 80053; 81003; 82140; 83605; 83690; 83735; 85025; 85610; 85730; 86140; 87040; 96361; 96374; 99283; J2405; Q9967

== ENCOUNTER 2020-03-24 11:02 | Inpatient (IN) ==
[~2020-03-24 11:02] MED LIST: Buffered Lidocaine 1% SYRIN 1 ml INTRADERM ONE; Lactated Ringers 1000 ml BAG 1,000 ML IV SCH; ceFAZolin 2 GM PREMIX 2 GM/50 ML BAG ONE
[2020-03-24] MEDS ORDERED: Midazolam 2 mg/2 ml VIAL 1 mg/ml 2 ml VIAL (2 mg) ONE ×3 (13:02→14:16)
[2020-03-24] MEDS ORDERED: fentaNYL 100 mcg/2 ml 50 MCG/ML VIAL ONE (13:02)
[2020-03-24] MEDS ORDERED: ROPIVACAINE 5 MG/ML 30 ML BTL (0.5%) ONE ×2 (13:03→13:04)
[2020-03-24] MEDS ORDERED: Lidocaine 2% PF 5 ML VIAL ONE (13:04)
[2020-03-24] MEDS ORDERED: Bupivacaine 0.5% SDV PF 30ML VIAL ONE (13:18)
[2020-03-24] MEDS ORDERED: diPHENhydraMINE IV 50 MG/ML 1 ml VIAL (BENADRYL) IV PRN (14:05)
[2020-03-24] MEDS ORDERED: Lactulose 30 ml UDC PO PRN (14:05)
[2020-03-24] MEDS ORDERED: Ondansetron ODT 4 mg TAB 4 MG TAB PO PRN (14:05)
[2020-03-24] MEDS ORDERED: Ondansetron 4 mg VIAL 2 MG/ML 2 ml VIAL IV PRN ×2 (14:05→14:07)
[2020-03-24] MEDS ORDERED: Magnesium Hydroxide LIQ 30 ML UDC PO PRN (14:05)
[2020-03-24] MEDS ORDERED: diPHENhydraMINE 25 mg TAB PO PRN (14:05)
[2020-03-24] MEDS ORDERED: Naloxone 0.4 mg VIAL 0.4 mg/ml 1 ml VIAL IV PRN (14:07)
[2020-03-24] MEDS ORDERED: HYDROmorphone 1 MG/1 ML SYRINGE IV PRN (14:07)
[2020-03-24] MEDS ORDERED: fentaNYL 100 mcg/2 ml 50 MCG/ML VIAL IV PRN (14:07)
[2020-03-24] MEDS ORDERED: Phenylephrine 40 mcg/mL 10mL (400mcg) SYRINGE ONE (14:08)
[2020-03-24] MEDS ORDERED: EPHEDrine (Pressors) 50 MG/ML VIAL ONE (14:29)
[2020-03-24] MEDS ORDERED: ceFAZolin 1 GM ADVAN 1 GM in NS 0.9% 50 ML 50 ML IVPB SCH (15:00)
[2020-03-24] MEDS: Lactated Ringers 1000 ml BAG 1,000 ML IV SCH (17:47)
[2020-03-24] MEDS ORDERED: oxyCODONE/Acetamin 5/325 mg TAB ONE (17:55)
[2020-03-24] MEDS: oxyCODONE/Acetamin 5/325 mg TAB PO PRN (17:56)
[2020-03-24] MEDS ORDERED: Morphine 2 MG/ML SYRINGE ONE (18:17)
[2020-03-24] MEDS: Morphine 2 MG/ML SYRINGE IV PRN (18:19)
[2020-03-24] MEDS ORDERED: hydrALAZINE 20 mg/ml 1 ML Vial IV IV SLOW PU ONE (20:03)
[2020-03-24] MEDS ORDERED: Labetalol IV 5 MG/ML 20 ml VIAL IV PUSH ONE (20:07)
[2020-03-24] MEDS: Magnesium Hydroxide LIQ 30 ML UDC PO SCH (20:32)
[2020-03-24] MEDS: ceFAZolin 1 GM ADVAN 1 GM in NS 0.9% 50 ML 50 ML IVPB SCH (23:15)
[2020-03-25] MEDS: Morphine 2 MG/ML SYRINGE IV PRN (02:42)
[2020-03-25] MEDS: Lactated Ringers 1000 ml BAG 1,000 ML IV SCH (03:54)
[2020-03-25] MEDS: ceFAZolin 1 GM ADVAN 1 GM in NS 0.9% 50 ML 50 ML IVPB SCH ×2 (05:49→14:18)
[2020-03-25 07:02] LABS: Hematocrit 38 % (42-52); Hemoglobin 12.9 g/dL (14.0-18.0); Platelet Count 167 10^3/uL (150-450)
[2020-03-25 07:12] LABS: BUN/Creatinine Ratio 17.3 (8-20); Calcium 8.6 mg/dL (8.6-10.3); EGFR African American 70.7 (>60); EGFR Non-African American 58.5 (>60); Potassium 3.9 mmol/L (3.5-5.0)
[2020-03-25] MEDS: Magnesium Hydroxide LIQ 30 ML UDC PO SCH (07:54)
[2020-03-25] MEDS ORDERED: Vitamin THERAPEUTIC TAB PO SCH (09:00)
[2020-03-25] MEDS: oxyCODONE/Acetamin 5/325 mg TAB PO PRN ×3 (10:15→19:41)
[2020-03-25 15:57] VITALS: BP 119/65
== END 2020-03-25 20:00 | disposition home or self-care (01) | DRG 302 ==
LOC: INTOOBSV 11:02 → AA 11:02 → SSU 14:05
PROVIDERS: ADMIT Orthopaedic Surgery Adult Reconstructive Orthopaedic Surgery; ATTEND Orthopaedic Surgery Adult Reconstructive Orthopaedic Surgery